=== PATIENT | male | born 1955 | race Caucasian/White ===

== ENCOUNTER → 2020-02-25 | Outpatient (CLI) | payer OTHER ==
[2016-02-22 17:23] VITALS: BP 144/81
[~2020-02-25] MED LIST: AMLO-268 PO; AMLO10TA8 PO; CLIN300C8 PO; FENO160T PO; FURO20TA3 PO; HYDR-2765 PO; HYDR-3165 PO; METF10007 PO; METO25TA4 PO; METO50TA29 PO; ONDA4TAB10 PO; TAMS0.4C2 PO; VANC1VIA3 MC
[2020-02-25 12:35] LABS: ALBUMIN 3.7 g/dL (3.4-5.0); CALCIUM 9.4 mg/dL (8.5-10.1); CREATININE 2.2 mg/dL (0.7-1.3); GFR 30.3; PHOSPHORUS 3.9 mg/dL (2.6-4.7); POTASSIUM 4.5 mmol/L (3.5-5.1)
== END | disposition home or self-care (01) ==
LOC: LAB 11:41
PROVIDERS: ATTEND Internal Medicine Nephrology
DX: I12.9 Hypertensive chronic kidney disease with stage 1 through stage 4 chronic kidney disease, or unspecified chronic kidney disease (principal); N18.3 Chronic kidney disease, stage 3 (moderate); E11.29 Type 2 diabetes mellitus with other diabetic kidney complication; E66.9 Obesity, unspecified; E55.9 Vitamin D deficiency, unspecified; R60.9 Edema, unspecified; G47.30 Sleep apnea, unspecified; Z79.84 Long term (current) use of oral hypoglycemic drugs; Z68.42 Body mass index [BMI] 45.0-49.9, adult
CPT/HCPCS: 36415; 80069

== ENCOUNTER 2020-09-24 14:17 | Inpatient (IN) | payer BC ==
[~2020-09-24] VITALS: Ht 170.2 cm; Wt 128.5 kg
[~2020-09-24 14:17] MED LIST changes: +AMLO-187 PO; -AMLO10TA8 PO; -CLIN300C8 PO; +CLIN300C9 PO
[2020-09-24] MEDS ORDERED: DEXTROSE 50% 25 GM / 50ML DISP.SYRIN. IV PRN (15:45)
[2020-09-24 15:47] VITALS: BP 137/78
[2020-09-24] MEDS ORDERED: ATOR20TA PO (16:02)
[2020-09-24] MEDS ORDERED: METO5TAB4 PO (16:02)
[2020-09-24] MEDS ORDERED: FLUO10TA PO (16:02)
[2020-09-24] MEDS ORDERED: SPIR50TA4 PO (16:02)
[2020-09-24] MEDS ORDERED: GLIP5TAB10 PO (16:02)
[2020-09-24] MEDS ORDERED: SEMA3TAB PO (16:02)
[2020-09-24] MEDS ORDERED: SEMA1PEN SQ (16:02)
[2020-09-24] MEDS ORDERED: INSU100V37 SQ (16:02)
[2020-09-24] MEDS ORDERED: POTA20TA4 PO (16:02)
[2020-09-24] MEDS ORDERED: METF500T16 PO (16:04)
--- NOTE | 2020-09-24 16:27 | NUR ---
NURSING NOTE ADMIT PT DIRECT ADMIT TO ROOM 115 FOR DX OF SYNCOPE, FALLS, AND HYPERGLYCEMIA. PT SETTLED IN ROOM. DR ARAGON NOTIFIED OF ARRIVAL. ROSETTA WHITESIDE.
[2020-09-24 16:29] LABS: BASO % 1 % (0-3); EOS # 0.4 x10^3/uL (0.0-0.7); EOS % 6 % (0-3); HEMATOCRIT 42.3 % (39.0-53.0); HEMOGLOBIN 14.8 g/dL (13.0-17.5); LYMPH # 1.5 x10^3/uL (1.0-4.8); LYMPH % 21 % (24-48); MEAN CORPUSCULAR HEMOGLOBIN 35 pg (25-35); MEAN CORPUSCULAR HGB CONC 35 g/dL (31-37); MEAN CORPUSCULAR VOLUME 99 fL (79-100); MONO # 0.7 x10^3/uL (0.0-1.1); MONO % 10 % (0-9); NEUT # 4.4 x10^3uL (1.8-7.7); NEUT % 62 % (31-73); PLATELET COUNT 203 x10^3/uL (140-400); RED BLOOD COUNT 4.26 x10^6/uL (4.30-5.70); RED CELL DISTRIBUTION WIDTH 12.7 % (11.5-14.5); WHITE BLOOD COUNT 7.1 x10^3/uL (4.0-11.0)
[2020-09-24 16:31] LABS: ALBUMIN 3.5 g/dL (3.4-5.0); ALBUMIN/GLOBULIN RATIO 0.7 (1.0-1.7); CALCIUM 9.1 mg/dL (8.5-10.1); CREATININE 1.8 mg/dL (0.7-1.3); GFR 38.2; TOTAL BILIRUBIN 0.6 mg/dL (0.2-1.0); TOTAL PROTEIN 8.2 g/dL (6.4-8.2)
[2020-09-24 16:33] LABS: POTASSIUM 2.3 mmol/L (3.5-5.1)
--- NOTE | 2020-09-24 16:38 | NUR ---
NURSING NOTE CRITICAL RESULT K 2.3 ORDER FOR ELECTROLYTE PROTOCOL RECEIVED. ROSETTA WHITESIDE.
--- NOTE | 2020-09-24 17:00 | EKG ---
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
[2020-09-24] MEDS: POTASSIUM CHLORIDE 10MEQ 100 ML IV SCH ×4 (17:06→21:14)
[2020-09-24] MEDS: IV NORMAL SALINE 1,000ML 1,000 ML IV SCH (17:06)
[2020-09-24] MEDS: methylPREDNISolone SOD SUCC PF 125 MG/2 ML VIAL. IV SCH ×2 (17:07→19:50)
[2020-09-24] MEDS: AZITHROMYCIN 250 MG TABLET. PO SCH (17:07)
--- NOTE | 2020-09-24 17:17 | RAD ---
CT THORAX WO History: Cough. Shortness of breath. Technique: Noncontrast CT of the chest was performed. Coronal and sagittal reconstructions were perfo rmed. Exposure: One or more of the following individualized dose reduction techniques were utilized for thi s examination: 1. Automated exposure control 2. Adjustment of the mA and/or kV according to patient size 3. Use of iterative reconstruction technique. Comparison: None Findings: Chest: No pathologic lymphadenopathy. Mild coronary calcifications. Bilateral gynecomastia. Left lower lobe tree-in-bud nodularity. No consolidation or pleural effusion. No pneumothorax. Mild r ight lower lobe groundglass opacities. Mild centrilobular emphysema. Upper abdomen: Hepatic steatosis. Prior cholecystectomy. Bones: Chronic left anterior rib fractures. Impression: 1. Mild left lower lobe tree-in-bud nodularity and right lower lobe groundglass opacities, may repre sent infectious or inflammatory process. 2. Bilateral gynecomastia. 3. Hepatic steatosis. Electronically signed by: Vimal Silverman DO (09/24/2020 5:14 PM) [facility]
[2020-09-24] MEDS: metFORMIN 500 MG TABLET PO SCH (17:50)
[2020-09-24] MEDS: glipiZIDE 5 MG TABLET PO SCH (17:50)
[2020-09-24] MEDS: INSULIN LISPRO 300 UNITS/3 ML VIAL. SQ SCH ×2 (17:55→19:57)
[2020-09-24] MEDS: FUROSEMIDE 20 MG TABLET PO SCH (17:56)
[2020-09-24] MEDS: ZOLPIDEM 5 MG TABLET. PO PRN (19:49)
[2020-09-24] MEDS: ACETAMINOPHEN 325 MG TABLET PO PRN (19:49)
[2020-09-24] MEDS: ATORVASTATIN CALCIUM 20 MG TABLET PO SCH (19:50)
[2020-09-24] MEDS: ENOXAPARIN 40 MG/0.4 ML SYRINGE. SQ SCH (19:51)
[2020-09-24] MEDS: METOPROLOL TART IMMED RELEASE 25 MG TABLET. PO SCH (19:52)
[2020-09-24 20:00] VITALS: BP 133/69
[2020-09-24 22:43] VITALS: BP 108/63
[2020-09-25] MEDS: methylPREDNISolone SOD SUCC PF 125 MG/2 ML VIAL. IV SCH (05:09)
[2020-09-25] MEDS: IV NORMAL SALINE 1,000ML 1,000 ML IV SCH (05:27)
[2020-09-25] MEDS: ACETAMINOPHEN 325 MG TABLET PO PRN (05:27)
[2020-09-25 05:41] VITALS: BP 124/67
[2020-09-25 05:42] VITALS: BP 147/73
[2020-09-25 05:43] VITALS: BP 116/62
[2020-09-25 06:20] LABS: CALCIUM 8.5 mg/dL (8.5-10.1); CREATININE 1.9 mg/dL (0.7-1.3); GFR 35.9
[2020-09-25 06:29] LABS: POTASSIUM 2.8 mmol/L (3.5-5.1)
[2020-09-25] MEDS: POTASSIUM CHLORIDE 10MEQ 100 ML IV SCH ×4 (07:45→10:45)
[2020-09-25] MEDS ORDERED: INSULIN LISPRO 300 UNITS/3 ML VIAL. SQ ONE ×2 (07:45→12:50)
[2020-09-25] MEDS ORDERED: INSULIN GLARGINE SYRINGE. SQ SCH (08:00)
[2020-09-25] MEDS: glipiZIDE 5 MG TABLET PO SCH ×2 (08:00→17:00)
[2020-09-25] MEDS: metFORMIN 500 MG TABLET PO SCH ×2 (08:00→17:00)
[2020-09-25] MEDS: POTASSIUM CHLORIDE 20 MEQ TABLET.ER. PO SCH (09:00)
[2020-09-25] MEDS: ENOXAPARIN 40 MG/0.4 ML SYRINGE. SQ SCH ×2 (09:00→21:53)
[2020-09-25] MEDS: FLUoxetine HCL 10 MG CAPSULE PO SCH (09:00)
[2020-09-25] MEDS: AZITHROMYCIN 250 MG TABLET. PO SCH (09:00)
[2020-09-25] MEDS: metOLazone 5 MG TABLET PO SCH (09:00)
[2020-09-25] MEDS: FENOFIBRATE NANOCRYSTALLIZED 145 MG TABLET PO SCH (09:00)
[2020-09-25] MEDS: METOPROLOL TART IMMED RELEASE 25 MG TABLET. PO SCH ×2 (09:00→21:48)
[2020-09-25] MEDS: TAMSULOSIN 0.4 MG CAP.ER.24H. PO SCH (09:00)
[2020-09-25] MEDS: FUROSEMIDE 20 MG TABLET PO SCH ×2 (09:00→15:26)
[2020-09-25] MEDS ORDERED: PHENOL ORAL SPRAY 177ML BOTTLE. PO PRN (10:15)
[2020-09-25] MEDS: INSULIN LISPRO 300 UNITS/3 ML VIAL. SQ SCH ×4 (11:19→21:55)
[2020-09-25] MEDS ORDERED: INSULIN LISPRO 300 UNITS/3 ML VIAL. SQ SCH (12:00)
[2020-09-25] MEDS ORDERED: INSULIN REGULAR 100 UNIT/ML 3ML VIAL. IV ONE ×2 (12:50→17:30)
[2020-09-25 15:00] VITALS: BP 135/78
--- NOTE | 2020-09-25 15:48 | NUR ---
NURSING NOTE [facility] DOWN TIME CRITICAL CRITICAL GLUCOSE OF [address] [facility] THIS AM. PT GIVEN 20 UNITS HUMALOG SQ PER [facility], AND 20 UNITS REGULAR INSULIN IV PER [facility]. WILL CONTINUE TO MONITOR. ROSETTA WHITESIDE.
--- NOTE | 2020-09-25 18:01 | NUR ---
NURSING NOTE PT CALLED [facility] [employer], STATES SOMETHING FELL, THIS NURSE PEAKED INTO ROOM, IT WAS THE TRASH CAN. THIS NURSE TOLD PT ITS OKAY, THAT STAFF WILL PICK IT UP NEXT TIME THEY ARE IN PT ROOM, PT IN ISOLATION D/T COVID PUI. UPON ENTERING ROOM, PT STATES "I PICKED UP TRASH CAN, IT WAS BOTHERING ME, AND I LOST MY BALANCE AND FELL OVER MY BED". THIS NURSE ASKED PT, DID YOU GET HURT OR HIT THE GROUND, PT STATES NO, HE FELL OVER THE BED. BED ALARM PLACED. PT INSTRUCTED TO CALL FOR ASSISTANCE. ROSETTA WHITESIDE.
[2020-09-25] MEDS: IPRATROPIUM/ALBUTEROL 20/100mcg/INH INHALER. INH SCH (18:49)
--- NOTE | 2020-09-25 18:57 | PN ---
DATE: 09/25/2020 SUBJECTIVE: A 64-year-old gentleman came in with extremely low potassium of only 2.3. The patient also was having trouble breathing. He also had possible __ pneumonia according to a CAT scan in the bases. The patient is receiving IV antibiotic therapy, was placed on some steroids as well as breathing problem and of course got his blood sugar up and so we have had to give him IV insulin to bring the sugar down from over 500. He at one time was on 4 liters of oxygen, BiPAP and CPAP as well as to maintain his oxygen saturation, getting breathing treatments of Combivent as well as steroids have been tapered down dramatically. OBJECTIVE: VITAL SIGNS: Blood pressure presently 135/80, respiratory rate 20, pulse 60. GENERAL: Afebrile, room air, presently 96%. HEENT: The patient's head was atraumatic, normocephalic. LUNGS: Diminished, but clear than they have been. CARDIOVASCULAR: Regular sinus rhythm, S1, S2. ABDOMEN: Soft, nontender, no rebound or guarding. Positive bowel sounds. No hepatosplenomegaly noted, protuberant. EXTREMITIES: No clubbing, cyanosis, +1 to 2 pitting edema. The patient has marked scarring to his left lower leg from previous surgeries. LABORATORY DATA: Sodium 133, potassium of 2.8, BUN and creatinine 31 and 1.9, sugar as high as 558 down to 400. We will give additional IV insulin. IMPRESSION: Pneumonia of unspecified etiology, community acquired; acute exacerbation of chronic obstructive pulmonary disease with infectious etiology, hepatic steatosis, hyperglycemia, type 2 diabetes, poorly controlled, essential hypertension, acute respiratory distress. PLAN: As above. Continue on IV antibiotic therapy and adjust medications for that insulin to get sugar down. GRIS ARAGON MD DR: HUSAM/pedro JOB#: [id number] / [id number]
[2020-09-25 19:45] VITALS: BP 142/70
[2020-09-25] MEDS ORDERED: POTASSIUM CHLORIDE 20 MEQ TABLET.ER. PO ONE (20:45)
[2020-09-25] MEDS ORDERED: methylPREDNISolone SOD SUCC PF 125 MG/2 ML VIAL. IV SCH (21:00)
[2020-09-25] MEDS: LACTOBACILLUS RHAMNOSUS GG 1 CAPSULE. PO SCH (21:47)
[2020-09-25] MEDS: ZOLPIDEM 5 MG TABLET. PO PRN (21:48)
[2020-09-25] MEDS: methylPREDNISolone SOD SUCC PF 40 MG/ML VIAL. IV SCH (21:48)
[2020-09-25] MEDS: ATORVASTATIN CALCIUM 20 MG TABLET PO SCH (21:49)
[2020-09-25] MEDS: HYDROcodone/APAP 5/325MG 1 TAB TABLET PO PRN (21:49)
[2020-09-25] MEDS: INSULIN GLARGINE SYRINGE. SQ SCH (21:54)
[2020-09-25 22:33] VITALS: BP 148/72
[2020-09-26 06:03] VITALS: BP 156/74
[2020-09-26 06:38] LABS: CALCIUM 9.2 mg/dL (8.5-10.1); CREATININE 1.7 mg/dL (0.7-1.3); GFR 40.8
[2020-09-26 07:40] LABS: POTASSIUM 2.9 mmol/L (3.5-5.1)
[2020-09-26] MEDS: IPRATROPIUM/ALBUTEROL 20/100mcg/INH INHALER. INH SCH ×4 (08:00→20:00)
[2020-09-26] MEDS: TAMSULOSIN 0.4 MG CAP.ER.24H. PO SCH (08:06)
[2020-09-26] MEDS: methylPREDNISolone SOD SUCC PF 40 MG/ML VIAL. IV SCH ×2 (08:06→22:08)
[2020-09-26] MEDS: LACTOBACILLUS RHAMNOSUS GG 1 CAPSULE. PO SCH ×2 (08:06→22:08)
[2020-09-26] MEDS: FUROSEMIDE 20 MG TABLET PO SCH (08:07)
[2020-09-26] MEDS: POTASSIUM CHLORIDE 20 MEQ TABLET.ER. PO SCH ×3 (08:07→13:45)
[2020-09-26] MEDS: FLUoxetine HCL 10 MG CAPSULE PO SCH (08:08)
[2020-09-26] MEDS: AZITHROMYCIN 250 MG TABLET. PO SCH (08:08)
[2020-09-26] MEDS: metOLazone 5 MG TABLET PO SCH (08:08)
[2020-09-26] MEDS: metFORMIN 500 MG TABLET PO SCH ×2 (08:08→16:45)
[2020-09-26] MEDS: FENOFIBRATE NANOCRYSTALLIZED 145 MG TABLET PO SCH (08:08)
[2020-09-26] MEDS: glipiZIDE 5 MG TABLET PO SCH ×2 (08:08→16:45)
[2020-09-26] MEDS: METOPROLOL TART IMMED RELEASE 25 MG TABLET. PO SCH ×2 (08:09→22:08)
[2020-09-26] MEDS: INSULIN LISPRO 300 UNITS/3 ML VIAL. SQ SCH ×5 (08:10→16:47)
[2020-09-26] MEDS: ACETAMINOPHEN 325 MG TABLET PO PRN (09:05)
[2020-09-26] MEDS: ENOXAPARIN 40 MG/0.4 ML SYRINGE. SQ SCH ×2 (09:06→22:06)
[2020-09-26] MEDS: INSULIN GLARGINE SYRINGE. SQ SCH ×2 (09:06→21:00)
[2020-09-26 10:53] VITALS: BP 148/82
[2020-09-26] MEDS ORDERED: BISACODYL 10 MG SUPP.RECT PR PRN (13:45)
[2020-09-26] MEDS: HYDROcodone/APAP 5/325MG 1 TAB TABLET PO PRN (13:53)
[2020-09-26 14:50] VITALS: BP 140/74
--- NOTE | 2020-09-26 16:03 | RAD ---
CT HEAD/BRAIN WO History: Reason: severe headache / Spl. Instructions: / History: Comparison: None. Technique: Noncontrast CT imaging was performed of the head. Exposure: One or more of the following individualized dose reduction techniques were utilized for thi s examination: 1. Automated exposure control 2. Adjustment of the mA and/or kV according to patient size 3. Use of iterative reconstruction technique. Findings: No intracranial hemorrhage. No mass effect. No hydrocephalus. Mild brain parenchymal volume loss. Mild foci of decreased attenuation within the hemispheric white m atter, most often due to chronic microvascular ischemia. Imaged orbits are unremarkable. Imaged paranasal sinuses and mastoid air cells are clear. No acute ca lvarial fracture. Impression: 1. No acute intracranial abnormality. Electronically signed by: Vimal Silverman DO (09/26/2020 4:01 PM) [facility]
--- NOTE | 2020-09-26 16:07 | PN ---
DATE: 09/26/2020 SUBJECTIVE: A 64-year-old gentleman with multiple medical issues including trouble breathing, pneumonia, imbalance, difficulty walking, ataxia or fall, elevated blood sugars and hypokalemic, working on getting additional potassium and to decrease Lasix and decrease prednisone ,waiting for COVID-19 test to come back. He is on Rocephin and azithromycin and he will continue to be monitored carefully on those. OBJECTIVE: VITAL SIGNS: Blood pressure 148/82, respiratory rate 18, pulse 57, afebrile. GENERAL: The patient is alert, although complaining of a headache in the back of his head, difficulty with gait. We will get a CT of the head there. LUNGS: Diminished, but clear than they have been, getting breathing treatments there and receiving IV antibiotic therapy. CARDIOVASCULAR: Regular sinus rhythm. Bradycardic. ABDOMEN: Protuberant, soft, diffuse tenderness; has not had a bowel movement for a few days, given a laxative there. EXTREMITIES: No clubbing, cyanosis, nor edema. NEUROLOGIC: Alert and oriented, although quite miserable in pain and is not feeling good of course with low potassium and sugars. We will just a sliding scale upwards as well as give him additional potassium supplementation. Check magnesium abdominal series, CT scan of the head and make further adjustments once those have been returned there. IMPRESSION: Pneumonia of unspecified etiology at the present time, acute exacerbation of emphysema with a respiratory infection, hepatic steatosis, constipation, severe headache, ataxia, essential hypertension, severe hypokalemia, acute respiratory distress. PLAN: As above. GRIS ARAGON MD DR: HUSAM/pedro JOB#: [id number] / [id number]
--- NOTE | 2020-09-26 16:43 | RAD ---
ACUTE ABDOMEN SERIES History: Constipation, abdominal pain. Comparison: None. Findings: Frontal chest and supine and upright views of the abdomen. Cardiomediastinal silhouette is normal. There is no pleural effusion or pneumothorax. The lungs are clear. No pneumoperitoneum is identified. Cholecystectomy clips. No dilated air-filled loops of bowel are se en. Bowel gas pattern is nonobstructive. There is probable hepatomegaly. Bones unremarkable. IMPRESSION: 1. No acute cardiopulmonary process. 2. Nonobstructive bowel gas pattern. 3. Probable hepatomegaly. Electronically signed by: Ashu Shah MD (09/26/2020 4:41 PM) [facility]
[2020-09-26 20:07] VITALS: BP 145/77
[2020-09-26] MEDS: HYDROcodone/APAP 7.5/325MG 1 TAB TABLET PO PRN (22:08)
[2020-09-26] MEDS: ZOLPIDEM 5 MG TABLET. PO PRN (22:08)
[2020-09-26] MEDS: ATORVASTATIN CALCIUM 20 MG TABLET PO SCH (22:08)
[2020-09-26] MEDS: POTASSIUM CHLORIDE 10MEQ 100 ML IV SCH ×2 (22:09→23:56)
[2020-09-26] MEDS ORDERED: INSULIN LISPRO 300 UNITS/3 ML VIAL. SQ ONE (22:15)
[2020-09-26 22:26] VITALS: BP 160/76
[2020-09-27] MEDS: POTASSIUM CHLORIDE 10MEQ 100 ML IV SCH ×4 (01:24→05:33)
[2020-09-27 05:18] VITALS: BP 163/81
[2020-09-27] MEDS: HYDROcodone/APAP 5/325MG 1 TAB TABLET PO PRN (06:17)
[2020-09-27 06:25] LABS: CALCIUM 9.1 mg/dL (8.5-10.1); CREATININE 1.5 mg/dL (0.7-1.3); GFR 47.1; POTASSIUM 3.3 mmol/L (3.5-5.1)
[2020-09-27] MEDS: metFORMIN 500 MG TABLET PO SCH ×2 (08:46→17:17)
[2020-09-27] MEDS: LACTOBACILLUS RHAMNOSUS GG 1 CAPSULE. PO SCH ×2 (08:46→20:34)
[2020-09-27] MEDS: methylPREDNISolone SOD SUCC PF 40 MG/ML VIAL. IV SCH ×2 (08:46→20:33)
[2020-09-27] MEDS: FLUoxetine HCL 10 MG CAPSULE PO SCH (08:46)
[2020-09-27] MEDS: TAMSULOSIN 0.4 MG CAP.ER.24H. PO SCH (08:46)
[2020-09-27] MEDS: DOCUSATE SODIUM 100 MG CAPSULE PO SCH (08:46)
[2020-09-27] MEDS: glipiZIDE 5 MG TABLET PO SCH ×2 (08:47→17:17)
[2020-09-27] MEDS: FENOFIBRATE NANOCRYSTALLIZED 145 MG TABLET PO SCH (08:47)
[2020-09-27] MEDS: AZITHROMYCIN 250 MG TABLET. PO SCH (08:47)
[2020-09-27] MEDS: FUROSEMIDE 20 MG TABLET PO SCH (08:47)
[2020-09-27] MEDS: METOPROLOL TART IMMED RELEASE 25 MG TABLET. PO SCH ×2 (08:48→20:33)
[2020-09-27] MEDS: ENOXAPARIN 40 MG/0.4 ML SYRINGE. SQ SCH (08:48)
[2020-09-27] MEDS: metOLazone 5 MG TABLET PO SCH (08:48)
[2020-09-27] MEDS: POTASSIUM CHLORIDE 20 MEQ TABLET.ER. PO SCH (08:48)
[2020-09-27] MEDS: INSULIN LISPRO 300 UNITS/3 ML VIAL. SQ SCH ×6 (08:51→17:19)
[2020-09-27] MEDS: INSULIN GLARGINE SYRINGE. SQ SCH ×2 (08:52→20:34)
[2020-09-27] MEDS: IPRATROPIUM/ALBUTEROL 20/100mcg/INH INHALER. INH SCH ×4 (08:54→20:00)
[2020-09-27 10:54] VITALS: BP 162/81
[2020-09-27] MEDS: NALOXEGOL OXALATE 25 MG TABLET. PO SCH (12:07)
[2020-09-27] MEDS: COLCHICINE 0.6 MG TABLET. PO SCH (12:07)
[2020-09-27 14:51] VITALS: BP 123/67
--- NOTE | 2020-09-27 19:09 | PN ---
DATE: SUBJECTIVE: The patient is a 64-year-old male in with COVID-19 pneumonia, acute respiratory failure as well as severe hypokalemia. The patient is still running low-grade temperature of 99. OBJECTIVE: VITAL SIGNS: Blood pressure 123/67, respiration 18, pulse 68, afebrile except for the 99 degree temperature low-grade. GENERAL: Otherwise, the patient is alert and oriented, feels a little bit better. LUNGS: Diminished, but basically clear. CARDIOVASCULAR: Stable. ABDOMEN: Soft, nontender. EXTREMITIES: No clubbing, cyanosis or edema. NEUROLOGIC: Intact. Blood sugars still running on the high side despite tapering down on his Solu-Medrol, otherwise. IMPRESSION: COVID-19 pneumonia, severe hypokalemia, severe hyperglycemia. PLAN: Continue with present protocol and continue to monitor patient accordingly. GRIS ARAGON MD DR: HUSAM/pedro JOB#: [id number] / [id number]
[2020-09-27 19:38] VITALS: BP 171/77
[2020-09-27] MEDS: ENOXAPARIN ** NOTE DOSE ** SYRINGE SQ SCH (20:32)
[2020-09-27] MEDS: ACETAMINOPHEN 325 MG TABLET PO PRN (20:34)
[2020-09-27] MEDS: ATORVASTATIN CALCIUM 20 MG TABLET PO SCH (20:34)
[2020-09-27 23:11] VITALS: BP 151/75
[2020-09-28 05:36] VITALS: BP 148/52
[2020-09-28 06:05] LABS: HEMATOCRIT 40.3 % (39.0-53.0); HEMOGLOBIN 13.7 g/dL (13.0-17.5); RED BLOOD COUNT 4.05 x10^6/uL (4.30-5.70); RED CELL DISTRIBUTION WIDTH 12.8 % (11.5-14.5); WHITE BLOOD COUNT 14.4 x10^3/uL (4.0-11.0)
[2020-09-28] MEDS: NALOXEGOL OXALATE 25 MG TABLET. PO SCH (07:27)
[2020-09-28] MEDS: IPRATROPIUM/ALBUTEROL 20/100mcg/INH INHALER. INH SCH ×4 (08:00→20:00)
[2020-09-28] MEDS: ENOXAPARIN ** NOTE DOSE ** SYRINGE SQ SCH ×2 (08:49→20:35)
[2020-09-28] MEDS: FUROSEMIDE 20 MG TABLET PO SCH (08:50)
[2020-09-28] MEDS: metOLazone 5 MG TABLET PO SCH (08:50)
[2020-09-28] MEDS: LACTOBACILLUS RHAMNOSUS GG 1 CAPSULE. PO SCH ×2 (08:51→20:37)
[2020-09-28] MEDS: AZITHROMYCIN 250 MG TABLET. PO SCH (08:51)
[2020-09-28] MEDS: glipiZIDE 5 MG TABLET PO SCH ×2 (08:51→17:20)
[2020-09-28] MEDS: POTASSIUM CHLORIDE 20 MEQ TABLET.ER. PO SCH (08:51)
[2020-09-28] MEDS: TAMSULOSIN 0.4 MG CAP.ER.24H. PO SCH (08:51)
[2020-09-28] MEDS: FLUoxetine HCL 10 MG CAPSULE PO SCH (08:51)
[2020-09-28] MEDS: metFORMIN 500 MG TABLET PO SCH ×2 (08:51→17:20)
[2020-09-28] MEDS: COLCHICINE 0.6 MG TABLET. PO SCH (08:51)
[2020-09-28] MEDS: METOPROLOL TART IMMED RELEASE 25 MG TABLET. PO SCH ×2 (08:52→20:36)
[2020-09-28] MEDS: FENOFIBRATE NANOCRYSTALLIZED 145 MG TABLET PO SCH (08:52)
[2020-09-28] MEDS: DOCUSATE SODIUM 100 MG CAPSULE PO SCH (08:52)
[2020-09-28] MEDS: INSULIN LISPRO 300 UNITS/3 ML VIAL. SQ SCH ×6 (08:59→17:23)
[2020-09-28] MEDS: INSULIN GLARGINE SYRINGE. SQ SCH ×2 (09:00→20:39)
[2020-09-28] MEDS: methylPREDNISolone SOD SUCC PF 40 MG/ML VIAL. IV SCH ×2 (09:03→20:37)
[2020-09-28] MEDS: HYDROcodone/APAP 5/325MG 1 TAB TABLET PO PRN ×2 (09:07→20:36)
[2020-09-28 10:26] VITALS: BP 157/66
[2020-09-28] MEDS: ACETAMINOPHEN 325 MG TABLET PO PRN (12:10)
[2020-09-28] MEDS ORDERED: guaiFENesin DM 200MG/20MG 10 ML SYRUP PO ONE (13:15)
[2020-09-28] MEDS: POLYETHYLENE GLYCOL 3350 17 GM PACKET. PO SCH (13:49)
[2020-09-28 14:33] VITALS: BP 138/74
--- NOTE | 2020-09-28 20:26 | PN ---
DATE: SUBJECTIVE: A 64-year-old male in with COVID-19 pneumonia. The patient says he is feeling a smidgen better. His temperature is staying down about 99 degrees. His oxygen saturation above 90 consistently, blood pressure 138/74, respiratory rate 20, pulse 99. The patient otherwise continued to be monitored carefully, make further evaluation on him as indicated. Lungs were diminished, some crackles in the bases, but improved throughout. He looks a little bit stronger than he has been. He is getting his sugar down consistently more in the 200s and even 100s than the 300s. The patient's potassium is finally up over 3 and continue to monitor him on that. IMPRESSION: Bilateral COVID-19 pneumonia, severe hypokalemia, hyperglycemia, type 2 diabetes, morbid obesity. PLAN: Continue with protocol as indicated as he is making a stellar progress with that. GRIS ARAGON MD DR: HUSAM/pedro JOB#: [id number] / [id number]
[2020-09-28] MEDS: ATORVASTATIN CALCIUM 20 MG TABLET PO SCH (20:37)
[2020-09-28 20:54] VITALS: BP 146/82
[2020-09-28 23:29] VITALS: BP 142/73
--- NOTE | 2020-09-29 02:53 | NUR ---
Nursing note: Pt A&Ox4, blood sugar elevated, lantus 35u given per orders. Pt did c/o headache, hydrocodone/APAP given per orders. Spoke with pt regarding suppository vs. PO medication to move bowels; pt elected not to have suppository at this time. VS as noted.
[2020-09-29 05:54] VITALS: BP 157/79
[2020-09-29] MEDS: NALOXEGOL OXALATE 25 MG TABLET. PO SCH (06:09)
[2020-09-29 06:26] LABS: CALCIUM 9.3 mg/dL (8.5-10.1); CREATININE 1.5 mg/dL (0.7-1.3); GFR 47.1
[2020-09-29 06:28] LABS: POTASSIUM 2.9 mmol/L (3.5-5.1)
[2020-09-29] MEDS: POTASSIUM CHLORIDE 10MEQ 100 ML IV SCH ×4 (07:00→09:45)
[2020-09-29] MEDS: IPRATROPIUM/ALBUTEROL 20/100mcg/INH INHALER. INH SCH ×4 (08:00→20:00)
[2020-09-29] MEDS: glipiZIDE 5 MG TABLET PO SCH ×2 (08:08→16:56)
[2020-09-29] MEDS: FUROSEMIDE 20 MG TABLET PO SCH (08:08)
[2020-09-29] MEDS: COLCHICINE 0.6 MG TABLET. PO SCH (08:09)
[2020-09-29] MEDS: metFORMIN 500 MG TABLET PO SCH ×2 (08:09→16:56)
[2020-09-29] MEDS: FLUoxetine HCL 10 MG CAPSULE PO SCH (08:09)
[2020-09-29] MEDS: AZITHROMYCIN 250 MG TABLET. PO SCH (08:09)
[2020-09-29] MEDS: TAMSULOSIN 0.4 MG CAP.ER.24H. PO SCH (08:09)
[2020-09-29] MEDS: DOCUSATE SODIUM 100 MG CAPSULE PO SCH (08:09)
[2020-09-29] MEDS: FENOFIBRATE NANOCRYSTALLIZED 145 MG TABLET PO SCH (08:09)
[2020-09-29] MEDS: POTASSIUM CHLORIDE 20 MEQ TABLET.ER. PO SCH (08:09)
[2020-09-29] MEDS: METOPROLOL TART IMMED RELEASE 25 MG TABLET. PO SCH ×2 (08:09→20:31)
[2020-09-29] MEDS: metOLazone 5 MG TABLET PO SCH (08:09)
[2020-09-29] MEDS: methylPREDNISolone SOD SUCC PF 40 MG/ML VIAL. IV SCH (08:10)
[2020-09-29] MEDS: POLYETHYLENE GLYCOL 3350 17 GM PACKET. PO SCH (08:10)
[2020-09-29] MEDS: LACTOBACILLUS RHAMNOSUS GG 1 CAPSULE. PO SCH ×2 (08:10→20:30)
[2020-09-29] MEDS: ENOXAPARIN ** NOTE DOSE ** SYRINGE SQ SCH ×2 (08:10→20:31)
[2020-09-29] MEDS: INSULIN LISPRO 300 UNITS/3 ML VIAL. SQ SCH ×6 (08:14→17:00)
[2020-09-29] MEDS: INSULIN GLARGINE SYRINGE. SQ SCH ×2 (08:19→20:34)
[2020-09-29] MEDS: HYDROcodone/APAP 7.5/325MG 1 TAB TABLET PO PRN ×2 (08:47→21:38)
[2020-09-29] MEDS: guaiFENesin DM 200MG/20MG 10 ML SYRUP PO PRN ×2 (08:48→20:30)
[2020-09-29 11:00] VITALS: BP 131/68
[2020-09-29] MEDS ORDERED: IPRATRPIUM/ALBUTEROL 0.5/2.5MG 3 ML NEBU. INH SCH (12:00)
[2020-09-29] MEDS ORDERED: FLUoxetine HCL 10 MG CAPSULE PO ONE (12:00)
[2020-09-29] MEDS ORDERED: MAGNESIUM CITRATE 296 ML SOLUTION. PO ONE (12:00)
[2020-09-29] MEDS: DEXAMETHASONE SOD PHOS 4 MG/ML VIAL. IVP SCH ×2 (14:00→20:30)
[2020-09-29 14:13] LABS: GFR 43.7; POTASSIUM 3.3 mmol/L (3.5-5.1)
[2020-09-29 14:25] LABS: CALCIUM 9.6 mg/dL (8.5-10.1); CREATININE 1.6 mg/dL (0.7-1.3)
[2020-09-29 14:53] VITALS: BP 138/69
--- NOTE | 2020-09-29 15:10 | RAD ---
XR CHEST 1V Clinical History: Reason: soa, covid + / Spl. Instructions: / History: Technique: AP view of the chest was obtained at 09/29/2020 1:35 PM. Comparison: February 15, 2016. Findings: The cardiomediastinal silhouette is normal. The pulmonary vasculature is normal. There is mild patchy opacity in the lung bases. Impression: Mild basal infiltrates likely discoid atelectasis. Electronically signed by: Manuelito Boyd III, MD (09/29/2020 3:07 PM) [facility]
[2020-09-29] MEDS ORDERED: POTASSIUM CHLORIDE 20 MEQ TABLET.ER. PO ONE (17:00)
--- NOTE | 2020-09-29 18:16 | NUR ---
Pt up adl in room. Had Cody in am relieved with Lortab. Also having dry cough relieved somewhat with cough syrup.C/O severe fatigue, chest tightness and weakness. SOA with exertion. Temp at lunch 100.3. Dr Delaney here to see pt. New orders noted. Pt on K+ protocol. Pt up to 3.3. 40meq given at supper and BMP ordered for am. Pt also c/o no BM x 1 week. Mag citrate given with good results. Resting quietly in bed at this time.
[2020-09-29] MEDS: BUTALB/APAP/CAFEIN 50/325/40MG TABLET. PO PRN (19:32)
[2020-09-29 19:57] VITALS: BP 160/69
[2020-09-29] MEDS: ATORVASTATIN CALCIUM 20 MG TABLET PO SCH (20:30)
[2020-09-29] MEDS: ZOLPIDEM 5 MG TABLET. PO PRN (20:30)
--- NOTE | 2020-09-29 22:28 | PN ---
DATE: 09/29/2020 SUBJECTIVE: A 64-year-old male in with bilateral COVID-19 pneumonia. The patient is making some progress, but still very ill. Temperature spiked up to 100.2. OBJECTIVE: VITAL SIGNS: Blood pressure 160/70, respiratory rate 20, pulse 70, and oxygen saturation 93%. GENERAL: The patient continues on IV antibiotic therapy. Added Levaquin to his drug regimen. LUNGS: Diminished, but basically clear. CARDIOVASCULAR: Stable. ABDOMEN: Soft, nontender, protuberant. EXTREMITIES: No clubbing, cyanosis, nor edema. LABORATORY DATA: Potassium still on the low side 3.3. PLAN: We will go ahead and continue to adjust his insulin. We will keep that under control. Continue with antibiotic therapy. Continue to monitor him carefully. IMPRESSION: COVID-19 pneumonia, type 2 diabetes, hypokalemia and hyponatremia. GRIS ARAGON MD DR: HUSAM/pedro JOB#: [id number] / [id number]
[2020-09-29 23:05] VITALS: BP 148/75
--- NOTE | 2020-09-30 02:10 | NUR ---
Nursing note: Pt c/o headache at beginning of shift, tried fioricet per request; some relief as noted but headache returned in severity. Pain medications, ambien, and cough medications given per orders and pt req.
[2020-09-30] MEDS: NALOXEGOL OXALATE 25 MG TABLET. PO SCH (06:15)
[2020-09-30 07:16] VITALS: BP 143/88
[2020-09-30] MEDS: DEXAMETHASONE SOD PHOS 4 MG/ML VIAL. IVP SCH ×3 (07:20→20:57)
[2020-09-30 07:52] LABS: CALCIUM 9.2 mg/dL (8.5-10.1); CREATININE 1.4 mg/dL (0.7-1.3)
[2020-09-30 07:56] LABS: POTASSIUM 3.6 mmol/L (3.5-5.1)
[2020-09-30] MEDS: IPRATROPIUM/ALBUTEROL 20/100mcg/INH INHALER. INH SCH ×4 (08:00→20:00)
[2020-09-30] MEDS: ENOXAPARIN ** NOTE DOSE ** SYRINGE SQ SCH ×2 (08:22→20:57)
[2020-09-30] MEDS: metFORMIN 500 MG TABLET PO SCH ×2 (08:23→17:00)
[2020-09-30] MEDS: COLCHICINE 0.6 MG TABLET. PO SCH (08:23)
[2020-09-30] MEDS: FENOFIBRATE NANOCRYSTALLIZED 145 MG TABLET PO SCH (08:23)
[2020-09-30] MEDS: FLUoxetine HCL 20 MG CAPSULE PO SCH (08:23)
[2020-09-30] MEDS: AZITHROMYCIN 250 MG TABLET. PO SCH (08:23)
[2020-09-30] MEDS: LACTOBACILLUS RHAMNOSUS GG 1 CAPSULE. PO SCH ×2 (08:23→20:57)
[2020-09-30] MEDS: glipiZIDE 5 MG TABLET PO SCH ×2 (08:23→17:00)
[2020-09-30] MEDS: DOCUSATE SODIUM 100 MG CAPSULE PO SCH (08:23)
[2020-09-30] MEDS: POLYETHYLENE GLYCOL 3350 17 GM PACKET. PO SCH ×2 (08:24→08:59)
[2020-09-30] MEDS: METOPROLOL TART IMMED RELEASE 25 MG TABLET. PO SCH ×2 (08:24→20:56)
[2020-09-30] MEDS: TAMSULOSIN 0.4 MG CAP.ER.24H. PO SCH (08:24)
[2020-09-30] MEDS: POTASSIUM CHLORIDE 20 MEQ TABLET.ER. PO SCH (08:24)
[2020-09-30] MEDS: INSULIN LISPRO 300 UNITS/3 ML VIAL. SQ SCH ×6 (08:25→17:02)
[2020-09-30] MEDS: BUTALB/APAP/CAFEIN 50/325/40MG TABLET. PO PRN (08:47)
[2020-09-30] MEDS: guaiFENesin DM 200MG/20MG 10 ML SYRUP PO PRN (08:48)
[2020-09-30] MEDS: INSULIN GLARGINE SYRINGE. SQ SCH ×2 (08:48→20:56)
[2020-09-30 11:06] VITALS: BP 147/93
[2020-09-30] MEDS: ACETAMINOPHEN 325 MG TABLET PO PRN (11:18)
--- NOTE | 2020-09-30 14:30 | NUR ---
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
--- NOTE | 2020-09-30 14:31 | NUR ---
Procedure: Following complete explanation of the PICC procedure including the indications, risks, and potential complications, informed consent was obtained. The possibility for infection was discussed along with signs, symptoms, and prevention. All the patient's questions were answered. IV Device Protocol was used. Written and verbal patient education was provided. Hand hygiene performed. Standardized central line checklist was utilized. The patient was placed in the supine position, the right arm was prepped with chlorhexidine and patient draped with maximum sterile barrier. 1.5 mL 1% lidocaine was infiltrated into the skin to provide local anesthesia. A thorough assessment of the right upper extremity completed. Using real-time ultrasound guidance and standardized micro puncture set, the Basilic vein was punctured and a peel away sheath was placed using the modified Seldinger technique. A tip location device was used to ensure adequate catheter placement. The catheter was secured using a securement device and an antimicrobial patch was applied directly on the insertion site followed by a transparent dressing. The port withdrew blood and flushed without resistance. Patient tolerated the procedure without apparent complication. A single Lumen Power PICC placement successful and uncomplicated. Placement verified by EKG tip confirmation system green p wave and massiel observed. Tip located in the ACJ per 3CG. Complications:
[2020-09-30 15:25] VITALS: BP 162/84
[2020-09-30 19:30] VITALS: BP 147/77
[2020-09-30] MEDS: HYDROcodone/APAP 7.5/325MG 1 TAB TABLET PO PRN (20:57)
[2020-09-30] MEDS: ATORVASTATIN CALCIUM 20 MG TABLET PO SCH (20:57)
[2020-09-30] MEDS: ZOLPIDEM 5 MG TABLET. PO PRN (22:25)
[2020-09-30 23:00] VITALS: BP 157/84
--- NOTE | 2020-10-01 04:08 | PN ---
DATE: 09/30/2020 SUBJECTIVE: A 64-year-old male with bilateral lobe COVID-19 pneumonia. The patient is resting fairly comfortably, making fairly good progress. He says he feels smidgen better. His temperature is still up to the 100.1. OBJECTIVE: VITAL SIGNS: Blood pressure 140/77, respiratory rate 18, pulse 60, 97% oxygen saturation, which is improving. GENERAL: The patient otherwise seems to be more alert, but he has been a little bit stronger. LUNGS: Diminished throughout, basically clear, but decreased. CARDIOVASCULAR: Regular sinus rhythm. ABDOMEN: Soft, protuberant, nontender. EXTREMITIES: No clubbing, cyanosis or edema. NEUROLOGIC: Baseline there. LABORATORY DATA: Blood sugars are still running on the high side, so we will continue to adjust his insulin and make further adjustments as indicated. IMPRESSION AND PLAN: Bilateral lobe COVID-19 pneumonia, hyperglycemia, type 2 diabetes, hypokalemia, which seems to be improving and we will make him feel ____. We will increase his insulin as we attempt to get his sugars down and control his COVID infection. GRIS ARAGON MD DR: HUSAM/pedro JOB#: [id number] / [id number]
--- NOTE | 2020-10-01 05:09 | NUR ---
Pt requested pain med and something to help him sleep. Pt received lortab and ambien. Pt is complaining of pain in his right arm around site of PICC that was just placed 11/29/19. Sight has no drainage no redness. This RN explained the sight would be sore for a couple of day due to procedure. No other concerns or complaints through the night. Pt has slept the rest of the night.
[2020-10-01] MEDS: DEXAMETHASONE SOD PHOS 4 MG/ML VIAL. IVP SCH ×2 (05:26→20:12)
[2020-10-01 05:48] VITALS: BP 156/79
[2020-10-01 06:07] LABS: CALCIUM 9.2 mg/dL (8.5-10.1); CREATININE 1.5 mg/dL (0.7-1.3); GFR 47.1; POTASSIUM 3.4 mmol/L (3.5-5.1)
[2020-10-01] MEDS: NALOXEGOL OXALATE 25 MG TABLET. PO SCH (06:24)
[2020-10-01] MEDS: INSULIN LISPRO 300 UNITS/3 ML VIAL. SQ SCH ×6 (08:27→16:56)
[2020-10-01] MEDS: INSULIN GLARGINE SYRINGE. SQ SCH ×2 (08:27→20:12)
[2020-10-01] MEDS: FENOFIBRATE NANOCRYSTALLIZED 145 MG TABLET PO SCH (08:29)
[2020-10-01] MEDS: FLUoxetine HCL 20 MG CAPSULE PO SCH (08:30)
[2020-10-01] MEDS: DOCUSATE SODIUM 100 MG CAPSULE PO SCH (08:30)
[2020-10-01] MEDS: glipiZIDE 5 MG TABLET PO SCH ×2 (08:30→16:56)
[2020-10-01] MEDS: LACTOBACILLUS RHAMNOSUS GG 1 CAPSULE. PO SCH ×2 (08:30→20:11)
[2020-10-01] MEDS: COLCHICINE 0.6 MG TABLET. PO SCH (08:30)
[2020-10-01] MEDS: guaiFENesin DM 200MG/20MG 10 ML SYRUP PO PRN ×2 (08:30→17:00)
[2020-10-01] MEDS: FUROSEMIDE 20 MG TABLET PO SCH (08:30)
[2020-10-01] MEDS: AZITHROMYCIN 250 MG TABLET. PO SCH (08:30)
[2020-10-01] MEDS: TAMSULOSIN 0.4 MG CAP.ER.24H. PO SCH (08:30)
[2020-10-01] MEDS: METOPROLOL TART IMMED RELEASE 25 MG TABLET. PO SCH ×2 (08:30→20:12)
[2020-10-01] MEDS: IPRATROPIUM/ALBUTEROL 20/100mcg/INH INHALER. INH SCH ×4 (08:31→20:11)
[2020-10-01] MEDS: metFORMIN 500 MG TABLET PO SCH ×2 (08:31→16:56)
[2020-10-01] MEDS: POTASSIUM CHLORIDE 20 MEQ TABLET.ER. PO SCH (08:32)
[2020-10-01] MEDS: POLYETHYLENE GLYCOL 3350 17 GM PACKET. PO SCH (08:32)
[2020-10-01] MEDS: ENOXAPARIN ** NOTE DOSE ** SYRINGE SQ SCH ×2 (08:32→20:11)
[2020-10-01 10:25] VITALS: BP 169/89
[2020-10-01] MEDS: ACETAMINOPHEN 325 MG TABLET PO PRN (15:21)
[2020-10-01 15:35] VITALS: BP 133/65
[2020-10-01] MEDS: HYDROcodone/APAP 7.5/325MG 1 TAB TABLET PO PRN (17:01)
--- NOTE | 2020-10-01 19:18 | PN ---
DATE: SUBJECTIVE: A 64-year-old gentleman with COVID-19 pneumonia. The patient had been doing reasonably well, although this afternoon spiked temperature up to 102.1, pulse 70, respiratory rate 20, and blood pressure 130/60. Good oxygen saturation 94%, but still spiking temperatures. He is on triple antibiotic therapy. We will repeat chest x-ray. Otherwise, his blood sugar dropped down to 58 from where it has been running in the 300s or 400s. Otherwise, the patient continues to be monitored carefully and we will adjust his insulin and make further evaluation on him as indicated per those results. OBJECTIVE: GENERAL: The patient is alert and oriented, still very weak. LUNGS: Diminished, but clear. CARDIOVASCULAR: Regular sinus rhythm. ABDOMEN: Soft, nontender, protuberant. EXTREMITIES: No clubbing, cyanosis, nor edema. IMPRESSION: Therefore of COVID-19 pneumonia, type 2 diabetes, hypoglycemia, hyperglycemia, hypokalemia. PLAN: Continue to monitor and make further evaluation on him as indicated. GRIS ARAGON MD DR: HUSAM/pedro JOB#: [id number] / [id number]
[2020-10-01 19:30] VITALS: BP 139/77
[2020-10-01] MEDS: BUTALB/APAP/CAFEIN 50/325/40MG TABLET. PO PRN (20:11)
[2020-10-01] MEDS: ZOLPIDEM 5 MG TABLET. PO PRN (20:11)
[2020-10-01] MEDS: ATORVASTATIN CALCIUM 20 MG TABLET PO SCH (20:11)
[2020-10-01] MEDS ORDERED: INSULIN GLARGINE SYRINGE. SQ SCH (21:00)
--- NOTE | 2020-10-01 21:34 | RAD ---
AP chest x-ray HISTORY: Fever and shortness of breath. COMPARISON: Chest x-ray September 29, 2019. FINDINGS: Right PICC line tip distal SVC near the prior study. Heart size normal. Sella silhouette is normal. No pneumothorax. No pleural effusions. There is a right perihilar and infrahilar infiltrate which is new. Left lung clear. IMPRESSION: PICC line placement as described above. Development of right perihilar and infrahilar inf iltrates silhouetting the minor fissure suggesting right upper lobe and middle lobe infiltrates possi maynor multilobar pneumonia. Follow-up is advised to document that these resolve after treatment. Electronically signed by: Jagjit Dodge MD (10/01/2020 9:32 PM) [facility]
[2020-10-01 22:37] VITALS: BP 148/76
[2020-10-02 05:23] LABS: CALCIUM 8.7 mg/dL (8.5-10.1); CREATININE 1.5 mg/dL (0.7-1.3); GFR 47.1; POTASSIUM 3.4 mmol/L (3.5-5.1)
[2020-10-02 05:32] VITALS: BP 154/72
[2020-10-02] MEDS: IPRATROPIUM/ALBUTEROL 20/100mcg/INH INHALER. INH SCH ×4 (08:00→21:35)
[2020-10-02] MEDS: ENOXAPARIN ** NOTE DOSE ** SYRINGE SQ SCH ×2 (08:01→21:34)
[2020-10-02] MEDS: DEXAMETHASONE SOD PHOS 4 MG/ML VIAL. IVP SCH ×2 (08:01→21:34)
[2020-10-02] MEDS: NALOXEGOL OXALATE 25 MG TABLET. PO SCH (08:01)
[2020-10-02] MEDS: FENOFIBRATE NANOCRYSTALLIZED 145 MG TABLET PO SCH (08:02)
[2020-10-02] MEDS: LACTOBACILLUS RHAMNOSUS GG 1 CAPSULE. PO SCH ×2 (08:02→21:34)
[2020-10-02] MEDS: TAMSULOSIN 0.4 MG CAP.ER.24H. PO SCH (08:02)
[2020-10-02] MEDS: DOCUSATE SODIUM 100 MG CAPSULE PO SCH (08:02)
[2020-10-02] MEDS: glipiZIDE 5 MG TABLET PO SCH ×2 (08:02→16:52)
[2020-10-02] MEDS: FLUoxetine HCL 20 MG CAPSULE PO SCH (08:02)
[2020-10-02] MEDS: METOPROLOL TART IMMED RELEASE 25 MG TABLET. PO SCH ×2 (08:03→21:35)
[2020-10-02] MEDS: POTASSIUM CHLORIDE 20 MEQ TABLET.ER. PO SCH (08:03)
[2020-10-02] MEDS: AZITHROMYCIN 250 MG TABLET. PO SCH (08:03)
[2020-10-02] MEDS: COLCHICINE 0.6 MG TABLET. PO SCH (08:04)
[2020-10-02] MEDS: metFORMIN 500 MG TABLET PO SCH ×2 (08:04→16:52)
[2020-10-02] MEDS: INSULIN LISPRO 300 UNITS/3 ML VIAL. SQ SCH ×6 (08:07→16:54)
[2020-10-02] MEDS: INSULIN GLARGINE SYRINGE. SQ SCH ×2 (08:09→21:33)
[2020-10-02] MEDS: POLYETHYLENE GLYCOL 3350 17 GM PACKET. PO SCH (08:11)
[2020-10-02] MEDS ORDERED: PIP/TAZO PER PHARMACY MC PRN (09:30)
[2020-10-02 10:43] VITALS: BP 142/57
[2020-10-02] MEDS: ACETAMINOPHEN 325 MG TABLET PO PRN ×2 (11:42→21:34)
[2020-10-02] MEDS: PIPERACILLIN/TAZOBACTAM 4.5 GM in IV NORMAL SALINE 50ML 50 ML IV SCH ×2 (14:39→21:34)
[2020-10-02 14:42] VITALS: BP 144/66
--- NOTE | 2020-10-02 18:10 | DS ---
DATE OF DISCHARGE: HOSPITAL COURSE: A 64-year-old male in with COVID-19 pneumonia, had been doing reasonably well and then became increasingly feverish and his chest x-ray showed bilateral pneumonia, fairly significantly. His blood pressure has stabilized at 140/66, respiratory rate 20, and pulse 60. His temperature has dropped down from 102.1 down to 100 degrees, down to afebrile. The patient is alert, but very lethargic, needs to get up more. The patient's lungs are diminished primarily in the bases, but clearer than they have been in the last day or so. Cardiovascular exam was regular sinus rhythm, S1, S2, without murmur, rub, thrill, or extra heart sounds. The patient's abdomen is soft, protuberant, and nontender. The patient otherwise seems to be making good progress with the change in antibiotics, as he is on Zosyn and Levaquin. Blood sugars were also being monitored as he has had severe problems with those. Potassium is still slightly low at 3.4. Blood sugars in the mid 200s. Sodium is low at 128. Continue to monitor all those. Otherwise extremities, no clubbing, cyanosis. Trace edema. IMPRESSION: Sepsis, COVID-19 pneumonia, bilateral lobe pneumonia, type 2 diabetes, poorly controlled; hypokalemia, morbid obesity, acute exacerbation of chronic obstructive pulmonary disease with respiratory infection, hepatic steatosis, constipation, severe headache, ataxia, essential hypertension, and hypokalemia as noted. GRIS ARAGON MD DR: HUSAM/pedro JOB#: [id number] / [id number]
[2020-10-02 20:00] VITALS: BP 144/77
[2020-10-02] MEDS: ATORVASTATIN CALCIUM 20 MG TABLET PO SCH (21:34)
[2020-10-02] MEDS: ZOLPIDEM 5 MG TABLET. PO PRN (21:34)
[2020-10-03 01:09] VITALS: BP 139/75
[2020-10-03] MEDS: PIPERACILLIN/TAZOBACTAM 4.5 GM in IV NORMAL SALINE 50ML 50 ML IV SCH ×3 (06:15→20:45)
[2020-10-03 06:27] VITALS: BP 148/85
[2020-10-03] MEDS: NALOXEGOL OXALATE 25 MG TABLET. PO SCH (08:34)
[2020-10-03] MEDS: metFORMIN 500 MG TABLET PO SCH ×2 (08:34→17:11)
[2020-10-03] MEDS: glipiZIDE 5 MG TABLET PO SCH ×2 (08:35→17:11)
[2020-10-03] MEDS: FENOFIBRATE NANOCRYSTALLIZED 145 MG TABLET PO SCH (08:35)
[2020-10-03] MEDS: COLCHICINE 0.6 MG TABLET. PO SCH (08:35)
[2020-10-03] MEDS: LACTOBACILLUS RHAMNOSUS GG 1 CAPSULE. PO SCH ×2 (08:35→20:45)
[2020-10-03] MEDS: METOPROLOL TART IMMED RELEASE 25 MG TABLET. PO SCH ×2 (08:35→20:46)
[2020-10-03] MEDS: POTASSIUM CHLORIDE 20 MEQ TABLET.ER. PO SCH (08:35)
[2020-10-03] MEDS: TAMSULOSIN 0.4 MG CAP.ER.24H. PO SCH (08:35)
[2020-10-03] MEDS: FUROSEMIDE 20 MG TABLET PO SCH (08:35)
[2020-10-03] MEDS: IPRATROPIUM/ALBUTEROL 20/100mcg/INH INHALER. INH SCH ×4 (08:36→20:00)
[2020-10-03] MEDS: DOCUSATE SODIUM 100 MG CAPSULE PO SCH (08:36)
[2020-10-03] MEDS: FLUoxetine HCL 20 MG CAPSULE PO SCH (08:36)
[2020-10-03] MEDS: DEXAMETHASONE SOD PHOS 4 MG/ML VIAL. IVP SCH ×2 (08:36→20:46)
[2020-10-03] MEDS: ENOXAPARIN ** NOTE DOSE ** SYRINGE SQ SCH ×2 (08:37→20:45)
[2020-10-03] MEDS: POLYETHYLENE GLYCOL 3350 17 GM PACKET. PO SCH (08:38)
[2020-10-03] MEDS: INSULIN LISPRO 300 UNITS/3 ML VIAL. SQ SCH ×6 (08:41→17:15)
[2020-10-03] MEDS: INSULIN GLARGINE SYRINGE. SQ SCH ×2 (08:43→20:47)
[2020-10-03] MEDS: guaiFENesin DM 200MG/20MG 10 ML SYRUP PO PRN (09:03)
[2020-10-03] MEDS: ACETAMINOPHEN 325 MG TABLET PO PRN (09:03)
[2020-10-03 09:56] LABS: BASO % 0 % (0-3); EOS # 0.1 x10^3/uL (0.0-0.7); EOS % 1 % (0-3); HEMOGLOBIN 13.8 g/dL (13.0-17.5); LYMPH # 1.4 x10^3/uL (1.0-4.8); LYMPH % 10 % (24-48); MEAN CORPUSCULAR HEMOGLOBIN 36 pg (25-35); MEAN CORPUSCULAR HGB CONC 35 g/dL (31-37); MEAN CORPUSCULAR VOLUME 103 fL (79-100); MONO % 7 % (0-9); NEUT # 11.7 x10^3uL (1.8-7.7); NEUT % 82 % (31-73); PLATELET COUNT 281 x10^3/uL (140-400); RED BLOOD COUNT 3.87 x10^6/uL (4.30-5.70); RED CELL DISTRIBUTION WIDTH 12.8 % (11.5-14.5); WHITE BLOOD COUNT 14.3 x10^3/uL (4.0-11.0)
[2020-10-03 10:05] LABS: CALCIUM 9.1 mg/dL (8.5-10.1); CREATININE 1.6 mg/dL (0.7-1.3); GFR 43.7; POTASSIUM 3.6 mmol/L (3.5-5.1)
[2020-10-03 11:26] VITALS: BP 147/69
--- NOTE | 2020-10-03 16:21 | NUR ---
NSG NOTE; HYPOXIA PT WALKED IN THE [place] WITH PT/OT AND HAD O2 SAT OF 86% AFTER 10 MINUTE RECOVERY TIME IN ROOM. O2 NC APPLIED AND TITRATED UP TO 5 L TO GET O2 SAT OF 91%
[2020-10-03 17:10] VITALS: BP 144/68
[2020-10-03] MEDS ORDERED: REMDESIVIR LOAD in IV NORMAL SALINE 250ML TV IV ONE (20:00)
[2020-10-03] MEDS: ATORVASTATIN CALCIUM 20 MG TABLET PO SCH (20:45)
[2020-10-03] MEDS: HYDROcodone/APAP 7.5/325MG 1 TAB TABLET PO PRN (20:45)
[2020-10-03] MEDS: ZOLPIDEM 5 MG TABLET. PO PRN (20:45)
[2020-10-03 20:48] VITALS: BP 146/59
--- NOTE | 2020-10-03 21:25 | PN ---
DATE: 10/03/2020 SUBJECTIVE: A 64-year-old male in with COVID-19 pneumonia, acute respiratory failure with hypoxia, seems to be doing a little bit stronger today. He needs to get out of bed more and we will tell him numerous times. Blood pressure 140/70, respirations 18, pulse 60, afebrile. He has no general complaints outside of just being weak and fatigued and that is the main thing of getting his endurance and stamina. PT, OT is working with him. The patient otherwise seems to be resting fairly comfortably. OBJECTIVE: VITAL SIGNS: As noted blood pressure 140/70, respiratory rate 18, pulse 60, afebrile. He is on ___ at 96%. GENERAL: Otherwise, he is alert and oriented, looks a little bit stronger than he was yesterday. LUNGS: Diminished, primarily in the bases, but clear. CARDIOVASCULAR: Stable. ABDOMEN: Soft, protuberant. EXTREMITIES: No clubbing, cyanosis. Continue to monitor him on that. LABORATORY DATA: Continue to show improvement of his potassium to 3.6. Sodium is 133. Blood sugars in the mid 200s, markedly improved. IMPRESSION: COVID-19 pneumonia, acute respiratory distress with hypoxia, hypokalemia, hyponatremia, type 2 diabetes. PLAN: Continue with protocol with IV antibiotic therapy. Have him continue with PT, OT. Encouraged him to walk at least 2-3 times a day and get out of bed. GRIS ARGAON MD DR: HUSAM/pedro JOB#: [id number] / [id number]
[2020-10-04] MEDS: PIPERACILLIN/TAZOBACTAM 4.5 GM in IV NORMAL SALINE 50ML 50 ML IV SCH ×3 (05:39→21:18)
[2020-10-04] MEDS: NALOXEGOL OXALATE 25 MG TABLET. PO SCH (05:40)
[2020-10-04 06:07] VITALS: BP 148/86
[2020-10-04] MEDS: IPRATROPIUM/ALBUTEROL 20/100mcg/INH INHALER. INH SCH ×4 (08:00→20:00)
[2020-10-04] MEDS: FLUoxetine HCL 20 MG CAPSULE PO SCH (08:21)
[2020-10-04] MEDS: FENOFIBRATE NANOCRYSTALLIZED 145 MG TABLET PO SCH (08:21)
[2020-10-04] MEDS: DEXAMETHASONE SOD PHOS 4 MG/ML VIAL. IVP SCH ×2 (08:21→21:17)
[2020-10-04] MEDS: ENOXAPARIN ** NOTE DOSE ** SYRINGE SQ SCH ×2 (08:21→21:00)
[2020-10-04] MEDS: COLCHICINE 0.6 MG TABLET. PO SCH (08:22)
[2020-10-04] MEDS: DOCUSATE SODIUM 100 MG CAPSULE PO SCH (08:22)
[2020-10-04] MEDS: LACTOBACILLUS RHAMNOSUS GG 1 CAPSULE. PO SCH ×2 (08:22→21:16)
[2020-10-04] MEDS: POTASSIUM CHLORIDE 20 MEQ TABLET.ER. PO SCH (08:22)
[2020-10-04] MEDS: glipiZIDE 5 MG TABLET PO SCH ×2 (08:22→17:00)
[2020-10-04] MEDS: metFORMIN 500 MG TABLET PO SCH ×2 (08:22→17:00)
[2020-10-04] MEDS: TAMSULOSIN 0.4 MG CAP.ER.24H. PO SCH (08:22)
[2020-10-04] MEDS: INSULIN LISPRO 300 UNITS/3 ML VIAL. SQ SCH ×6 (08:28→17:04)
[2020-10-04] MEDS: INSULIN GLARGINE SYRINGE. SQ SCH ×2 (08:29→21:00)
[2020-10-04] MEDS: HYDROcodone/APAP 5/325MG 1 TAB TABLET PO PRN (08:33)
[2020-10-04] MEDS: METOPROLOL TART IMMED RELEASE 25 MG TABLET. PO SCH ×2 (09:00→21:17)
[2020-10-04] MEDS: POLYETHYLENE GLYCOL 3350 17 GM PACKET. PO SCH (09:00)
--- NOTE | 2020-10-04 10:11 | EKG ---
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
[2020-10-04 11:24] VITALS: BP 145/85
[2020-10-04 13:18] LABS: ALBUMIN 2.2 g/dL (3.4-5.0); ALBUMIN/GLOBULIN RATIO 0.4 (1.0-1.7); CREATININE 1.5 mg/dL (0.7-1.3); GFR 47.1; POTASSIUM 3.9 mmol/L (3.5-5.1); TOTAL BILIRUBIN 0.4 mg/dL (0.2-1.0); TOTAL PROTEIN 7.2 g/dL (6.4-8.2)
--- NOTE | 2020-10-04 19:00 | PN ---
DATE: SUBJECTIVE: A 64-year-old male that is in with COVID-19 bilateral lobe pneumonia, acute respiratory failure, on oxygen with hypoxia and hypokalemia. The patient was started on remdesivir last night because of his drop in his oxygen saturation has made a remarkable recovery up to 2 liters on 97%, blood pressure 140/80, respiratory rate 18, pulse 50. He is presently afebrile, breathing a little bit easier overall and making fairly good progress with that number. Blood sugars are also coming down with tapering down of his Decadron. The patient continues to be monitored carefully, make further evaluation on him as indicated. OBJECTIVE LUNGS: Diminished, but basically clearer than they have been. CARDIOVASCULAR: Regular sinus rhythm. ABDOMEN: Protuberant. EXTREMITIES: No clubbing, cyanosis or edema. NEUROLOGIC: At baseline. IMPRESSION: Therefore, bilateral lobe COVID-19 pneumonia, acute respiratory failure with hypoxia, severe hypokalemia, hyponatremia, morbid obesity, type 2 diabetes, poorly controlled, hepatic steatosis, constipation, ataxia, generalized deconditioning. PLAN: Continue to monitor the patient accordingly and make further evaluation with the protocol as noted above. GRIS ARAGON MD DR: HUSAM/pedro JOB#: [id number] / [id number]
[2020-10-04] MEDS ORDERED: REMDESIVIR 100mg in NORMAL SALINE 250ML X 4 DAYS IV SCH (20:00)
[2020-10-04 20:03] VITALS: BP 153/73
[2020-10-04] MEDS: HYDROcodone/APAP 7.5/325MG 1 TAB TABLET PO PRN (21:17)
[2020-10-04] MEDS: ATORVASTATIN CALCIUM 20 MG TABLET PO SCH (21:17)
[2020-10-04] MEDS: ZOLPIDEM 5 MG TABLET. PO PRN (21:18)
[2020-10-04 22:35] VITALS: BP 137/77
[2020-10-05] MEDS: PIPERACILLIN/TAZOBACTAM 4.5 GM in IV NORMAL SALINE 50ML 50 ML IV SCH ×3 (05:29→21:49)
[2020-10-05] MEDS: NALOXEGOL OXALATE 25 MG TABLET. PO SCH (05:29)
[2020-10-05] MEDS: IPRATROPIUM/ALBUTEROL 20/100mcg/INH INHALER. INH SCH ×4 (08:00→21:00)
[2020-10-05] MEDS: ENOXAPARIN ** NOTE DOSE ** SYRINGE SQ SCH ×2 (08:50→21:44)
[2020-10-05] MEDS: FENOFIBRATE NANOCRYSTALLIZED 145 MG TABLET PO SCH (08:52)
[2020-10-05] MEDS: ACETAMINOPHEN 325 MG TABLET PO PRN (08:52)
[2020-10-05] MEDS: FLUoxetine HCL 20 MG CAPSULE PO SCH (08:52)
[2020-10-05] MEDS: TAMSULOSIN 0.4 MG CAP.ER.24H. PO SCH (08:52)
[2020-10-05] MEDS: DEXAMETHASONE SOD PHOS 4 MG/ML VIAL. IVP SCH ×2 (08:52→21:41)
[2020-10-05] MEDS: LACTOBACILLUS RHAMNOSUS GG 1 CAPSULE. PO SCH ×2 (08:52→21:43)
[2020-10-05] MEDS: DOCUSATE SODIUM 100 MG CAPSULE PO SCH (08:53)
[2020-10-05] MEDS: FUROSEMIDE 20 MG TABLET PO SCH (08:53)
[2020-10-05] MEDS: metFORMIN 500 MG TABLET PO SCH ×2 (08:53→16:43)
[2020-10-05] MEDS: POTASSIUM CHLORIDE 20 MEQ TABLET.ER. PO SCH (08:53)
[2020-10-05] MEDS: COLCHICINE 0.6 MG TABLET. PO SCH (08:53)
[2020-10-05] MEDS: glipiZIDE 5 MG TABLET PO SCH ×2 (08:53→16:43)
[2020-10-05] MEDS: INSULIN LISPRO 300 UNITS/3 ML VIAL. SQ SCH ×6 (08:54→17:00)
[2020-10-05] MEDS: INSULIN GLARGINE SYRINGE. SQ SCH ×2 (08:57→21:45)
[2020-10-05] MEDS: METOPROLOL TART IMMED RELEASE 25 MG TABLET. PO SCH ×2 (08:58→21:43)
[2020-10-05] MEDS: POLYETHYLENE GLYCOL 3350 17 GM PACKET. PO SCH (09:00)
[2020-10-05 10:57] VITALS: BP 147/63
[2020-10-05 14:38] VITALS: BP 168/87
[2020-10-05 18:25] LABS: ALBUMIN 2.2 g/dL (3.4-5.0); ALBUMIN/GLOBULIN RATIO 0.4 (1.0-1.7); CREATININE 1.5 mg/dL (0.7-1.3); GFR 47.1; POTASSIUM 4.1 mmol/L (3.5-5.1); TOTAL BILIRUBIN 0.3 mg/dL (0.2-1.0); TOTAL PROTEIN 7.2 g/dL (6.4-8.2)
[2020-10-05 19:56] VITALS: BP 167/79
[2020-10-05] MEDS: BUTALB/APAP/CAFEIN 50/325/40MG TABLET. PO PRN (21:42)
[2020-10-05] MEDS: ATORVASTATIN CALCIUM 20 MG TABLET PO SCH (21:42)
[2020-10-05] MEDS: ZOLPIDEM 5 MG TABLET. PO PRN (21:43)
--- NOTE | 2020-10-05 21:50 | PN ---
DATE: SUBJECTIVE: A 64-year-old male in with COVID-19 pneumonia and respiratory failure. His swab came back negative for the COVID, so it looks like he is cleared that. He has been on a couple of days of remdesivir. He continues on IV antibiotic therapy for a pneumonic process that was noted in his lungs, possibly even multilobar pneumonia. He is doing somewhat better. Oxygenation on room air 94%. OBJECTIVE: VITAL SIGNS: Blood pressure 150/80, respiratory rate 20, pulse 60, afebrile. GENERAL: The patient is alert and oriented. LUNGS: Diminished throughout, poor movement of air. CARDIOVASCULAR: Regular sinus rhythm, S1, S2. ABDOMEN: Protuberant, soft, nontender. EXTREMITIES: No clubbing, cyanosis, nor edema. IMPRESSION: COVID-19 pneumonia, multilobar pneumonia, type 2 diabetes, morbid obesity. PLAN: Continue on IV antibiotic therapy. Continue with PT, OT and hopefully ready for discharge in the following day. GRIS ARAGON MD DR: HUSAM/pedro JOB#: [id number] / [id number]
[2020-10-05 22:37] VITALS: BP 175/77
[2020-10-06] MEDS: PIPERACILLIN/TAZOBACTAM 4.5 GM in IV NORMAL SALINE 50ML 50 ML IV SCH ×2 (05:45→14:00)
[2020-10-06 06:18] VITALS: BP 144/83
[2020-10-06 07:35] LABS: ALBUMIN 2.2 g/dL (3.4-5.0); ALBUMIN/GLOBULIN RATIO 0.5 (1.0-1.7); CALCIUM 9.2 mg/dL (8.5-10.1); CREATININE 1.5 mg/dL (0.7-1.3); GFR 47.1; POTASSIUM 4.5 mmol/L (3.5-5.1); TOTAL BILIRUBIN 0.3 mg/dL (0.2-1.0); TOTAL PROTEIN 6.9 g/dL (6.4-8.2)
[2020-10-06] MEDS: IPRATROPIUM/ALBUTEROL 20/100mcg/INH INHALER. INH SCH ×2 (08:00→12:00)
[2020-10-06] MEDS: POTASSIUM CHLORIDE 20 MEQ TABLET.ER. PO SCH (08:11)
[2020-10-06] MEDS: ENOXAPARIN ** NOTE DOSE ** SYRINGE SQ SCH (08:11)
[2020-10-06 08:12] VITALS: BP 144/83
[2020-10-06] MEDS: COLCHICINE 0.6 MG TABLET. PO SCH (08:12)
[2020-10-06] MEDS: METOPROLOL TART IMMED RELEASE 25 MG TABLET. PO SCH (08:12)
[2020-10-06] MEDS: DOCUSATE SODIUM 100 MG CAPSULE PO SCH (08:12)
[2020-10-06] MEDS: FLUoxetine HCL 20 MG CAPSULE PO SCH (08:12)
[2020-10-06] MEDS: glipiZIDE 5 MG TABLET PO SCH (08:12)
[2020-10-06] MEDS: LACTOBACILLUS RHAMNOSUS GG 1 CAPSULE. PO SCH (08:12)
[2020-10-06] MEDS: metFORMIN 500 MG TABLET PO SCH (08:12)
[2020-10-06] MEDS: TAMSULOSIN 0.4 MG CAP.ER.24H. PO SCH (08:12)
[2020-10-06] MEDS: POLYETHYLENE GLYCOL 3350 17 GM PACKET. PO SCH (08:13)
[2020-10-06] MEDS: NALOXEGOL OXALATE 25 MG TABLET. PO SCH (08:14)
[2020-10-06] MEDS: DEXAMETHASONE SOD PHOS 4 MG/ML VIAL. IVP SCH (08:14)
[2020-10-06] MEDS: INSULIN GLARGINE SYRINGE. SQ SCH (08:16)
[2020-10-06] MEDS: INSULIN LISPRO 300 UNITS/3 ML VIAL. SQ SCH ×4 (08:16→12:19)
[2020-10-06] MEDS: FENOFIBRATE NANOCRYSTALLIZED 145 MG TABLET PO SCH (08:24)
[2020-10-06] MEDS ORDERED: CEFD300C PO (11:46)
[2020-10-06] MEDS ORDERED: INSU100I11 SQ (11:46)
[2020-10-06] MEDS ORDERED: DEXA4TAB63 PO (11:46)
[2020-10-06] MEDS ORDERED: IPRA3AMP29 NEB (11:46)
--- NOTE | 2020-10-06 13:00 | DS ---
DATE OF DISCHARGE: HOSPITAL COURSE: A 64-year-old gentleman who was positive for COVID-19 as an outpatient. The computer in-house gave me best reading. In any case, he came in with acute respiratory failure with hypoxia with COVID-19 pneumonia. He is a diabetic. He is morbidly obese. He had multiple risk factors. He had not responded to outpatient therapy and became increasingly dyspneic and hypoxic. Oxygen saturation dropped down to 86%. He required BiPAP and CPAP to maintain oxygen levels above 90. He had been started on IV antibiotic therapy. He at one time cleared somewhat and then he regressed and had a secondary pneumonic process. The patient was technically septic because of his elevated temperature as well as his hypoxia. As noted, he did improve and that he had a relapse with a known pneumonic process. The patient in turn made fairly good progress. He was still very weak. He still required oxygen at the time of discharge. PICC line was left in place in case he was placed on oral antibiotics as far an outpatient and then the tapering doses of Decadron. His diabetes is also a big concern, some confusion on his medications he has at home. He will follow up recalling when he gets home to me for that number given. The patient also was complaining of severe headaches and there CT scan was negative. The patient's labs showed elevated white counts, but that may have been also secondary to the Decadron that was given. He was treated along with protocol for his COVID-19. He as noted was placed on remdesivir when his oxygen saturation dropped down into the 80s. He also has severe protein malnutrition, chronic kidney disease stage 3a and of course, his diabetes was also brought under control with sliding scales and long-acting insulins. The patient was discharged home per his request. He will continue on home oxygen. IMPRESSION: Therefore, COVID-19 pneumonia, acute respiratory failure secondary to the COVID-19 pneumonia, severe protein malnutrition, sepsis, type 2 diabetes, exacerbated by use of Decadron for the COVID-19, chronic kidney disease stage 3a, hepatic steatosis, morbid obesity, hypoxia, sleep apnea. See MRAD. Decreased activity, told to isolate from other people for now and follow up accordingly in the next 3-4 days in the office with all his home medications. He is to get my number, he will call me. He will be on a diabetic diet, decreased activity. PLAN: As above. GRIS ARAGON MD DR: HUSAM/pedro JOB#: [id number] / [id number]
== END 2020-10-06 14:34 | disposition home health service (06) | DRG 871 ==
LOC: 1 SOUTH 14:17
PROVIDERS: ADMIT Family Medicine; ATTEND Family Medicine
PROC: 5A09357 Assistance with Respiratory Ventilation, Less than 24 Consecutive Hours, Continuous Positive Airway Pressure (ICD-10-PCS; principal; 2020-09-24)
PROC: 5A09357 Assistance with Respiratory Ventilation, Less than 24 Consecutive Hours, Continuous Positive Airway Pressure (ICD-10-PCS; 2020-09-25)
PROC: 5A09357 Assistance with Respiratory Ventilation, Less than 24 Consecutive Hours, Continuous Positive Airway Pressure (ICD-10-PCS; 2020-09-26)
PROC: 5A09357 Assistance with Respiratory Ventilation, Less than 24 Consecutive Hours, Continuous Positive Airway Pressure (ICD-10-PCS; 2020-09-28)
PROC: 5A09357 Assistance with Respiratory Ventilation, Less than 24 Consecutive Hours, Continuous Positive Airway Pressure (ICD-10-PCS; 2020-09-29)
PROC: 5A09357 Assistance with Respiratory Ventilation, Less than 24 Consecutive Hours, Continuous Positive Airway Pressure (ICD-10-PCS; 2020-09-30)
PROC: 5A09357 Assistance with Respiratory Ventilation, Less than 24 Consecutive Hours, Continuous Positive Airway Pressure (ICD-10-PCS; 2020-10-01)
PROC: 5A09357 Assistance with Respiratory Ventilation, Less than 24 Consecutive Hours, Continuous Positive Airway Pressure (ICD-10-PCS; 2020-10-03)
DX: A41.89 Other specified sepsis (principal); E43 Unspecified severe protein-calorie malnutrition; J12.82 Pneumonia due to coronavirus disease 2019; J96.01 Acute respiratory failure with hypoxia; U07.1 COVID-19; Z68.41 Body mass index [BMI] 40.0-44.9, adult; E87.1 Hypo-osmolality and hyponatremia; E11.22 Type 2 diabetes mellitus with diabetic chronic kidney disease; E11.649 Type 2 diabetes mellitus with hypoglycemia without coma; E11.65 Type 2 diabetes mellitus with hyperglycemia; E66.01 Morbid (severe) obesity due to excess calories; E87.6 Hypokalemia; G47.30 Sleep apnea, unspecified; I12.9 Hypertensive chronic kidney disease with stage 1 through stage 4 chronic kidney disease, or unspecified chronic kidney disease; J43.9 Emphysema, unspecified; K59.00 Constipation, unspecified; K76.0 Fatty (change of) liver, not elsewhere classified; N18.31 Chronic kidney disease, stage 3a; R27.0 Ataxia, unspecified
CPT/HCPCS: 36415; 36569; 70450; 71045; 71250; 74022; 80048; 80053; 82550; 82947; 84484; 85025; 85027; 87426; 93005; J0696; J1100; J1650; J1815; J1956; J2543; J2920; J2930; J3480; J7050; U0003; 97110; 97530; 97535; J7030

== ENCOUNTER → 2021-06-17 | Outpatient (CLI) | payer BC, MEDICARE ==
[~2021-06-17] MED LIST changes: +ATOR20TA PO; +CEFD300C PO; +CLIN-95 PO; -CLIN300C9 PO; +DEXA4TAB63 PO; +FLUO10TA PO; +GLIP5TAB10 PO; +INSU100I11 SQ; +INSU100V37 SQ; +IPRA3AMP29 NEB; +METF500T16 PO; +METO5TAB4 PO; +POTA-121 PO; +SEMA1PEN SQ; +SEMA3TAB PO; +SPIR50TA4 PO; -VANC1VIA3 MC; +VANC1VIA37 MC
[2021-06-17 14:36] LABS: CREATININE 1.8 mg/dL (0.7-1.3); GFR 38.1
[2021-06-17 15:36] LABS: POTASSIUM 2.8 mmol/L (3.5-5.1)
== END ==
LOC: LAB 09:25
PROVIDERS: ATTEND Internal Medicine Cardiovascular Disease
DX: I10 Essential (primary) hypertension (principal)
CPT/HCPCS: 36415; 80048

== ENCOUNTER → 2021-06-21 | Outpatient (CLI) | payer BC, MEDICARE ==
[2021-06-21 11:04] LABS: CALCIUM 10.6 mg/dL (8.5-10.1); CREATININE 2.1 mg/dL (0.7-1.3); GFR 31.9
== END ==
LOC: LAB 10:08
PROVIDERS: ATTEND Internal Medicine Cardiovascular Disease
DX: I10 Essential (primary) hypertension (principal)
CPT/HCPCS: 36415; 80048

== ENCOUNTER → 2021-07-03 | Outpatient (CLI) | payer BC ==
[2021-07-03 10:55] LABS: CALCIUM 9.3 mg/dL (8.5-10.1); CREATININE 1.7 mg/dL (0.7-1.3); GFR 40.7; POTASSIUM 3.4 mmol/L (3.5-5.1)
== END ==
LOC: LAB 10:04
PROVIDERS: ATTEND Internal Medicine Cardiovascular Disease
DX: I10 Essential (primary) hypertension (principal)
CPT/HCPCS: 36415; 80048

== ENCOUNTER → 2021-07-10 | Outpatient (CLI) | payer BC ==
[~2021-07-10] MED LIST changes: +APIX5TAB3 PO; +BACL10TA PO; +DOCU-109 PO; +OXYC20TA35 PO; +PANT40TA6 PO; +SODI44SP NS
[2021-07-10 14:38] LABS: CREATININE 1.8 mg/dL (0.7-1.3); GFR 38.1; POTASSIUM 3.5 mmol/L (3.5-5.1)
== END ==
LOC: LAB 12:40
PROVIDERS: ATTEND Internal Medicine Cardiovascular Disease
DX: I10 Essential (primary) hypertension (principal); R06.02 Shortness of breath; R07.9 Chest pain, unspecified
CPT/HCPCS: 36415; 80048

== ENCOUNTER 2021-07-14 02:19 | Inpatient (IN) | payer BC, MEDICARE ==
[~2021-07-14] VITALS: Ht 170.2 cm; Wt 143.0 kg
[~2021-07-14 02:19] MED LIST changes: -APIX5TAB3 PO; -BACL10TA PO; -DOCU-109 PO; -OXYC20TA35 PO; -PANT40TA6 PO; -SODI44SP NS
--- NOTE | 2021-07-14 02:49 | PHYS DOC ---
Past History Past Medical History: Diabetes, DVT, High Cholesterol, Hypertension, Other Past Surgical History: Other Alcohol Use: Occasionally Drug Use: None Adult General Chief Complaint Chief Complaint: DYSPNEA/RESPIRATOY DISTRESS HPI HPI Patient is a 65-year-old male with a past medical history of insulin-dependent diabetes, DVT, hypertension and hyperlipidemia as well as obesity, COPD and obstructive sleep apnea who presents with a chief complaint of shortness of breath has been worsening over the last couple of days and approximately half an hour before coming into the emergency department got acutely worse, feeling he is unable to take a deep breath with some generalized chest discomfort but no pain. Endorses neck pain, worse than usual but was recently diagnosed with a pinched nerve in his neck. States that it woke him up out of his sleep and then started with the shortness of breath. Denies any recent traumas, travels, fevers, abdominal pain, nausea, vomiting, dysuria, hematuria, blood in the stool or diarrhea. Does have a history of Covid pneumonia 6 months ago. Review of Systems Review of Systems Review of systems otherwise unremarkable except noted in HPI Allergies Allergies Allergies Coded Allergies Type Severity Reaction Last Updated Verified lisinopril Allergy Severe breathing difficulty, closed throat 03/26/15 Yes Sulfa (Sulfonamide Antibiotics) Allergy Intermediate Hives 02/15/16 No amlodipine Allergy Unknown 09/24/20 Yes Physical Exam Physical Exam Constitutional: Well developed, well nourished, looks ill, appears in distress stating he is having a hard time catching his breath, grasping his chest and stating it is neck really hurt HENT: Normocephalic, atraumatic,oropharynx dry, no oral exudates, nose normal. [] Eyes: Extraocular movements intact but seems to be some asymmetry in alignment, pupils 2 mm bilaterally and sluggishly reactive bilaterally, conjunctiva normal, no discharge. [] Neck: Normal range of motion, no tenderness, supple, no stridor. [] Cardiovascular: Sinus bradycardia with PVCs Lungs & Thorax: Bilateral breath sounds relatively clear may be with scant rhonchi, tachypneic but no real increased work of breathing Abdomen: soft, no tenderness, no masses, no pulsatile masses. [] Skin: Warm, dry, no erythema, no rash. [] Back: No tenderness, no CVA tenderness. [] Extremities: No tenderness, no cyanosis, no clubbing, ROM intact, no edema. [] Neurologic: Alert and oriented X 3 but seems slightly confused or is having a hard time answering questions immediately, normal motor function, normal sensory function, able to sit, stand and walk without issue, no focal deficits noted. [] Psychologic: Affect normal, judgement normal, mood normal. [] Current Patient Data Lab Results Laboratory Tests Test 07/14/21 02:34 Glucose (Fingerstick) 197 mg/dL (70-99) H EKG EKG [] Radiology/Procedures Radiology/Procedures [] Heart Score C/O Chest Pain: No Risk Factors: Risk Factors: DM, Current or recent (<one month) smoker, HTN, HLP, family history of CAD, obesity. Risk Scores: Risk Factors: DM, Current or recent (<one month) smoker, HTN, HLP, family history of CAD, obesity. Course & Med Decision Making Course & Med Decision Making Patient is a 65-year-old male who presents with shortness of breath, chest and neck pain Vital signs notable for sinus bradycardia. Physical exam noted above. Placed on the monitor with IV access established. Started on some IV fluid. Cardiac pads in place. EKG with a rate of 58, QRS of 102, QTc 444, PVCs, no STEMI. Given patient's overall clinical picture of neurologic findings plus chest pain plus shortness of breath, differential included stroke versus MD versus inf ection versus some sort of vascular insufficiency of the chest or abdomen versus toxidrome Discussed findings with patient and and work-up including imaging of the head, chest, abdomen and pelvis. Patient and agreed with plan. did state that he started taking a new medication today, baclofen for his muscle spasms and neck pain as well as hydrocodone. Laboratory analysis with mildly elevated creatinine with initial troponin normal. Imaging of the head with CT and CTA of the head and neck not concerning. CT of the chest showing patchy opacities in bilateral lungs which could be infectious in nature with a possibility of aspiration pneumonia and possible mesenteric panniculitis. Blood cultures obtained. Started on broad- spectrum antibiotics. Patient's central nervous system sedating agent held this morning until a med reconciliation can be done as an inpatient. ACS rule out including 2 more troponins and EKGs pending. Discussed all findings with family and recommended admission to [facility] under Dr. Gayle. Family grateful, verbalized understanding agree with plan of admission. [] Dragon Disclaimer Dragon Disclaimer This electronic medical record was generated, in whole or in part, using a voice recognition dictation system. Departure Departure: Impression: Primary Impression: Shortness of breath Additional Impressions: Chest pain Neck pain Back pain Disposition: ADMITTED INPATIENT Admitting Physician: Lenny Delaney Condition: IMPROVED Referrals: LENNY DELANEY MD (PCP) Problem Qualifiers MARCELLA MALDONADO MD Jul 14, 2021 02:49
[2021-07-14] MEDS ORDERED: IOHEXOL 350 MG/ML 100 ML VIAL. ONE (02:57)
[2021-07-14] MEDS ORDERED: NALOXONE 0.4 MG/ML VIAL. ONE (02:58)
[2021-07-14 03:00] LABS: BASO # 0.1 x10^3/uL (0.0-0.2); BASO % 1 % (0-3); EOS # 0.4 x10^3/uL (0.0-0.7); EOS % 4 % (0-3); HEMATOCRIT 38.5 % (39.0-53.0); HEMOGLOBIN 13.2 g/dL (13.0-17.5); LYMPH # 3.1 x10^3/uL (1.0-4.8); LYMPH % 32 % (24-48); MEAN CORPUSCULAR HEMOGLOBIN 34 pg (25-35); MEAN CORPUSCULAR HGB CONC 34 g/dL (31-37); MEAN CORPUSCULAR VOLUME 99 fL (79-100); MONO # 0.8 x10^3/uL (0.0-1.1); MONO % 8 % (0-9); NEUT # 5.5 x10^3uL (1.8-7.7); NEUT % 56 % (31-73); PLATELET COUNT 207 x10^3/uL (140-400); RED CELL DISTRIBUTION WIDTH 13.8 % (11.5-14.5); WHITE BLOOD COUNT 9.8 x10^3/uL (4.0-11.0)
[2021-07-14] MEDS ORDERED: IV RINGERS SOLUTION,LACTATED 1,000 ML IV ONE ×2 (03:00→05:30)
--- NOTE | 2021-07-14 03:05 | EKG ---
[address] [address] Test Date: 2021-07-14 Test Time: 02:28:11 Pat Name: NICOLE OCHOA Department: Room: Gender: M Time Clock Inspector: : 1955 Requested By: MARCELLA MALDONADO Order Number: [id number] Reading MD: Donald Andrews MD Measurements Intervals [place] Rate: 58 P: 42 PA: 190 QRS: 31 QRSD: 102 T: 16 QT: 448 QTc: 444 Interpretive Statements SINUS RHYTHM VENTRICULAR PREMATURE COMPLEX(ES) Electronically Signed On 07-14-2021 20:23:37 PIANO REGULATOR by Donald Andrews MD
[2021-07-14 03:25] LABS: CALCIUM 9.4 mg/dL (8.5-10.1); CREATININE 2.3 mg/dL (0.7-1.3); GFR 28.7; POTASSIUM 3.3 mmol/L (3.5-5.1)
[2021-07-14 03:31] LABS: ALBUMIN 3.8 g/dL (3.4-5.0); MAGNESIUM 2.5 mg/dL (1.8-2.4); TOTAL BILIRUBIN 0.3 mg/dL (0.2-1.0); TOTAL PROTEIN 7.8 g/dL (6.4-8.2)
[2021-07-14] MEDS ORDERED: CONTRAST GIVEN. MC PRN (03:45)
[2021-07-14 03:49] LABS: BACTERIA,URINE FEW /HPF (0-FEW); BILIRUBIN,URINE NEG (NEG); CLARITY,URINE CLEAR; COLOR,URINE YELLOW; GLUCOSE,URINE NEG (NEG); NITRITE,URINE NEG (NEG); SQUAMOUS EPITHELIAL CELL,UR OCC /LPF; UROBILINOGEN,URINE 0.2 mg/dL (0.2 mg/dL)
--- NOTE | 2021-07-14 03:50 | RAD ---
INDICATION: Reason: AMS / Spl. Instructions: / History: COMPARISON: September 2020 TECHNIQUE: Axial CT images obtained through the head without intravenous contrast. One or more of the following individualized dose reduction techniques were utilized for this examinat ion: 1. Automated exposure control; 2. Adjustment of the mA and/or kV according to patient size; 3 . Use of iterative reconstruction technique. FINDINGS: No intracranial hemorrhage. No significant midline shift. Ventricles and sulci are globally prominent. Scattered foci of low attenuation within the white matter. IMPRESSION: * No acute intracranial hemorrhage. * Scattered regions of low attenuation within the white matter. Non-specific in nature but a common finding and frequently secondary to small vessel ischemic disease. Electronically signed by: Irvin Robertson MD (07/14/2021 3:48 AM) [id number]
[2021-07-14] MEDS ORDERED: NALOXONE 0.4 MG/ML VIAL. IV ONE (04:00)
[2021-07-14] MEDS ORDERED: IOHEXOL 350 MG/ML 100 ML VIAL. IV ONE ×2 (04:00)
--- NOTE | 2021-07-14 04:04 | RAD ---
INDICATION: Reason: soa, chest pain, abdomen pain, OMNI 350, 100ml / Spl. Instructions: / History: . COMPARISON: February 2016 CT chest report TECHNIQUE: Axial CT images obtained through the chest, abdomen and pelvis with contrast with three-dimensional i mages processed of the chest per angiogram protocol. One or more of the following individualized dose reduction techniques were utilized for this examinat ion: 1. Automated exposure control; 2. Adjustment of the mA and/or kV according to patient size; 3 . Use of iterative reconstruction technique. FINDINGS: Chest: Patchy opacities at the bilateral lungs. There is very little contrast seen within the thoracic aorta therefore not well evaluated. Calcific a therosclerosis is seen. Ascending thoracic aorta measures up to about 43 mm. Coronary artery calcific atherosclerosis. Very limited evaluation for pulmonary embolus secondary to motion and contrast bolus timing. No defin ite embolus in the main pulmonary artery but largely nondiagnostic throughout the pulmonary arteries. The aortic lumen is not evaluated secondary to lack of contrast within. Degenerative changes spine. Abdomen and pelvis: Atherosclerotic disease throughout the abdominal aorta. Fat-containing inguinal hernias. Aortic lumen is not well evaluated secondary to lack of contrast within. Liver is low density. Nonspecific but can be seen with fatty infiltration. Postcholecystectomy change s. Liver prominent in size. There is couple of small low-density liver lesions which are too small to characterize but a common finding. No peripancreatic fluid collection. No perisplenic hematoma. There is some nonspecific haziness the fat within a portion of the mesentery. No hydronephrosis. Cont rast is seen within the partially distended urinary bladder. Right renal cyst is suspected. Colonic diverticulosis. Suspected appendix does not appear dilated. There is some fullness of the pancreatic uncinate process region with some nodularity in the area. Degenerative changes the spine with multilevel central canal and neural foraminal stenosis. IMPRESSION: * Patchy opacities in bilateral lungs which could be infectious in nature with other possible causes including aspiration. Follow-up could be obtained to ensure this resolves to exclude a persistent no dule. * There is almost no contrast within the aortic vasculature therefore the lumen is not evaluated. Th ere is some dilatation of the ascending thoracic aorta as well as calcific atherosclerosis. * Highly limited evaluation for pulmonary embolus secondary to motion and contrast within the pulmon danisha arteries. No definite embolus is seen in the main pulmonary artery but the majority of the vessel s are nondiagnostic. * Fullness of the pancreatic uncinate process region with mild edema to the adjacent fat. This edema to the fat as well as nodularity could be from causes such as mesenteric panniculitis but consider o btaining a follow-up CT or MRI pancreatic protocol on a nonemergent basis to ensure that there is no lesion in the area contributing to this appearance given the nodularity at this site. Additionally a superimposed pancreatitis or inflammation to the small bowel in this region from enteritis is not exc luded given the nodularity and edema. Electronically signed by: Irvin Robertson MD (07/14/2021 4:02 AM) [id number]
[2021-07-14 04:35] LABS: ACETAMIN < 2.0 mcg/mL (10-30); SALIC 2.8 mg/dL (2.8-20.0)
--- NOTE | 2021-07-14 04:58 | RAD ---
INDICATION: Reason: AMS, OMNI 350, 75ml / Spl. Instructions: / History: COMPARISON: CT head from same day TECHNIQUE: Axial CT images obtained through the head and neck arterial vasculature with intravenous contrast. 3 D images were processed per protocol. Estimates of carotid stenosis based on criteria that correlates with NASCET. One or more of the following individualized dose reduction techniques were utilized for this examinat ion: 1. Automated exposure control; 2. Adjustment of the mA and/or kV according to patient size; 3 . Use of iterative reconstruction technique. FINDINGS: Head and Neck Angio: There is very little contrast within the arterial vasculature including at the partially visualized t horacic aorta but calcific atherosclerosis is seen. Portions of the neck arterial vasculature including both the carotid system as well as the vertebral arteries have very little or no contrast within therefore poorly evaluated. Scattered calcific atherosclerosis is seen within the carotid vasculature bilaterally. Small amount contrast is seen within the basilar artery which is small in caliber. Small amount contr ast is seen at the proximal posterior cerebral arteries bilaterally which are small in size and not w ell evaluated distally secondary to small size and suboptimal contrast. There is some luminal irregul arity seen within the anterior and posterior circulation which could be secondary to atherosclerotic disease. Calcific atherosclerosis is seen at the carotid siphon with some contrast seen within the distal inte rnal carotid arteries bilaterally with suboptimal contrast opacification. Contrast is seen within the proximal anterior cerebral arteries which are small in caliber and not well evaluated distally secon marry to small size as well as motion and limited contrast bolus. There is also some contrast seen within the proximal middle cerebral arteries with luminal irregulari ty which can be seen with plaque. The majority of the middle cerebral arteries are not well evaluated secondary to small vessel size as well as limited contrast bolus. Degenerative changes of the cervical spine with multilevel central canal and neural foraminal stenosi s. IMPRESSION: * Large portions of the head and neck arterial vasculature nondiagnostic secondary to very little co ntrast within as well as motion and small vessel size. There is atherosclerotic disease seen througho ut. If there is high concern for stroke clinically MRI could further assess given the limited nature of this exam. * Degenerative changes of cervical spine with multilevel central canal and neural foraminal stenosis . Electronically signed by: Irvin Robertson MD (07/14/2021 4:55 AM) [id number]
[2021-07-14 05:06] LABS: INFLUENZA A PATIENT NEGATIVE (NEGATIVE); INFLUENZA B PATIENT NEGATIVE (NEGATIVE)
[2021-07-14] MEDS ORDERED: IV NORMAL SALINE 50ML 50 ML ONE (05:06)
[2021-07-14] MEDS ORDERED: cefTRIAXone SODIUM 1 GM VIAL ONE (05:06)
[2021-07-14] MEDS ORDERED: KETOROLAC 30 MG/ML VIAL. ONE (05:26)
[2021-07-14] MEDS ORDERED: AZITHROMYCIN 250 MG TABLET. PO ONE (05:30)
[2021-07-14] MEDS ORDERED: MORPHINE SULFATE 2 MG/ML DISP.SYRIN. IV ONE (05:30)
[2021-07-14] MEDS ORDERED: KETOROLAC 15 MG/ML VIAL. IVP ONE (05:30)
[2021-07-14] MEDS ORDERED: ACETAMINOPHEN 500 MG TABLET PO ONE ×2 (05:30→15:30)
[2021-07-14 16:58] VITALS: BP 160/74
--- NOTE | 2021-07-14 17:26 | NUR ---
pt arrived to the unit at approx 1700 via ems from the er. Pt had belongings with him and home med bag. pharmacy called to lock up home meds. Dr Delaney notified that the pt was on the unit. pt settled in the room and given dinner as well as informed that dr delaney was notified that he was here.
[2021-07-14] MEDS ORDERED: PIP/TAZO PER PHARMACY MC PRN (19:15)
[2021-07-14] MEDS ORDERED: HYDROcodone/APAP 7.5/325MG 1 TAB TABLET PO PRN (19:15)
[2021-07-14] MEDS ORDERED: levoFLOXacin PER PHARMACY 1 EACH. MC PRN (19:15)
[2021-07-14] MEDS ORDERED: diazePAM 5 MG TABLET. PO PRN (19:30)
[2021-07-14] MEDS ORDERED: MORPHINE SULFATE 2 MG/ML DISP.SYRIN. IV PRN (19:30)
[2021-07-14] MEDS ORDERED: IPRATRPIUM/ALBUTEROL 0.5/2.5MG 3 ML NEBU. NEB SCH (20:00)
[2021-07-14] MEDS: PIPERACILLIN/TAZOBACTAM 3.375 GM in IV NORMAL SALINE 50ML 50 ML IV SCH (20:15)
[2021-07-14] MEDS: METOPROLOL TART IMMED RELEASE 25 MG TABLET. PO SCH (20:15)
[2021-07-14] MEDS: APIXABAN 5 MG TABLET. PO SCH (20:16)
[2021-07-14] MEDS: FUROSEMIDE 20 MG TABLET PO SCH (20:16)
[2021-07-14] MEDS: IPRATRPIUM/ALBUTEROL 0.5/2.5MG 3 ML NEBU. NEB SCH (21:21)
[2021-07-15] MEDS: PIPERACILLIN/TAZOBACTAM 3.375 GM in IV NORMAL SALINE 50ML 50 ML IV SCH ×4 (00:32→17:07)
[2021-07-15] MEDS: IPRATRPIUM/ALBUTEROL 0.5/2.5MG 3 ML NEBU. NEB SCH ×4 (05:44→18:48)
[2021-07-15 05:51] VITALS: BP 135/66
[2021-07-15 06:48] LABS: BASO # 0.1 x10^3/uL (0.0-0.2); BASO % 1 % (0-3); EOS # 0.3 x10^3/uL (0.0-0.7); EOS % 4 % (0-3); HEMATOCRIT 36.2 % (39.0-53.0); HEMOGLOBIN 12.6 g/dL (13.0-17.5); LYMPH # 2.5 x10^3/uL (1.0-4.8); LYMPH % 32 % (24-48); MEAN CORPUSCULAR HEMOGLOBIN 34 pg (25-35); MEAN CORPUSCULAR HGB CONC 35 g/dL (31-37); MEAN CORPUSCULAR VOLUME 99 fL (79-100); MONO # 0.7 x10^3/uL (0.0-1.1); MONO % 9 % (0-9); NEUT # 4.2 x10^3uL (1.8-7.7); NEUT % 54 % (31-73); PLATELET COUNT 210 x10^3/uL (140-400); RED BLOOD COUNT 3.66 x10^6/uL (4.30-5.70); RED CELL DISTRIBUTION WIDTH 13.5 % (11.5-14.5); WHITE BLOOD COUNT 7.8 x10^3/uL (4.0-11.0)
[2021-07-15 06:56] LABS: CALCIUM 8.7 mg/dL (8.5-10.1); CREATININE 2.1 mg/dL (0.7-1.3); GFR 31.9; POTASSIUM 3.2 mmol/L (3.5-5.1)
[2021-07-15] MEDS: PANTOPRAZOLE 40 MG TABLET. PO SCH (07:30)
[2021-07-15] MEDS: TAMSULOSIN 0.4 MG CAP.ER.24H. PO SCH (08:18)
[2021-07-15] MEDS: metOLazone 5 MG TABLET PO SCH (08:18)
[2021-07-15] MEDS: glipiZIDE 5 MG TABLET PO SCH ×2 (08:19→17:03)
[2021-07-15] MEDS: METOPROLOL TART IMMED RELEASE 25 MG TABLET. PO SCH ×2 (08:19→20:33)
[2021-07-15] MEDS: APIXABAN 5 MG TABLET. PO SCH ×2 (08:19→20:33)
[2021-07-15] MEDS: POTASSIUM CHLORIDE 20 MEQ TABLET.ER. PO SCH (08:19)
[2021-07-15] MEDS: FUROSEMIDE 20 MG TABLET PO SCH ×2 (08:19→20:32)
[2021-07-15] MEDS: INSULIN LISPRO 300 UNITS/3 ML VIAL. SQ SCH ×3 (08:25→17:07)
[2021-07-15] MEDS ORDERED: SODIUM CHLORIDE 0.65% NASAL SPRAY 45ML BOTTLE. NS PRN (08:30)
[2021-07-15] MEDS: oxyCODONE ER 20 MG TAB.ER.12H PO SCH ×2 (09:49→20:33)
[2021-07-15 11:20] VITALS: BP 126/57
[2021-07-15] MEDS: DOCUSATE SODIUM 100 MG CAPSULE PO SCH ×2 (14:18→20:33)
[2021-07-15] MEDS: BACLOFEN 10 MG TABLET PO SCH ×2 (14:18→20:32)
[2021-07-15 15:51] VITALS: BP 130/66
[2021-07-15 19:00] VITALS: BP 141/66
[2021-07-15] MEDS: LACTOBACILLUS RHAMNOSUS GG 1 CAPSULE. PO SCH (20:32)
[2021-07-15 23:54] VITALS: BP 140/63
[2021-07-15 23:56] VITALS: BP 140/63
[2021-07-16] MEDS: PIPERACILLIN/TAZOBACTAM 3.375 GM in IV NORMAL SALINE 50ML 50 ML IV SCH ×2 (00:01→06:00)
[2021-07-16] MEDS: IPRATRPIUM/ALBUTEROL 0.5/2.5MG 3 ML NEBU. NEB SCH (05:17)
[2021-07-16 06:56] LABS: CALCIUM 8.8 mg/dL (8.5-10.1); GFR 33.7; POTASSIUM 4.5 mmol/L (3.5-5.1)
[2021-07-16] MEDS: INSULIN LISPRO 300 UNITS/3 ML VIAL. SQ SCH (07:59)
[2021-07-16] MEDS: PANTOPRAZOLE 40 MG TABLET. PO SCH (08:00)
[2021-07-16] MEDS: POTASSIUM CHLORIDE 20 MEQ TABLET.ER. PO SCH (08:00)
[2021-07-16] MEDS: DOCUSATE SODIUM 100 MG CAPSULE PO SCH (08:00)
[2021-07-16] MEDS: TAMSULOSIN 0.4 MG CAP.ER.24H. PO SCH (08:00)
[2021-07-16] MEDS: LACTOBACILLUS RHAMNOSUS GG 1 CAPSULE. PO SCH (08:00)
[2021-07-16 08:01] VITALS: BP 140/63
[2021-07-16] MEDS: glipiZIDE 5 MG TABLET PO SCH (08:01)
[2021-07-16] MEDS: METOPROLOL TART IMMED RELEASE 25 MG TABLET. PO SCH (08:01)
[2021-07-16] MEDS: APIXABAN 5 MG TABLET. PO SCH (08:01)
[2021-07-16] MEDS: metOLazone 5 MG TABLET PO SCH (08:01)
[2021-07-16] MEDS: FUROSEMIDE 20 MG TABLET PO SCH (08:01)
[2021-07-16] MEDS: oxyCODONE ER 20 MG TAB.ER.12H PO SCH (08:02)
--- NOTE | 2021-07-16 09:20 | HP ---
DATE OF SERVICE: 07/15/2021 ADMIT DATE: 07/14/2021 HISTORY OF PRESENT ILLNESS: A 65-year-old male came in through the Emergency Room, long history of multiple medical problems, increased shortness of breath, worsening over the last couple of days, increasingly decreased mentation hard for him to take a deep breath, although apparently has been taking some other pain medication for severe neck and upper back pain that he has been having trying to get in with Dr. Howe noted Neurosurgeon for that. In any case, the patient was also found to have a pneumonic process, possible aspiration pneumonia and the patient was admitted to the hospital for further evaluation and treatment of his pneumonia and respiratory distress as well as other situations. PAST MEDICAL HISTORY: Hypercholesterolemia, DVT, sleep apnea, pancreatitis, diabetes, influenza and other vaccinations have been up to date. FAMILY HISTORY: Unremarkable. ALLERGIES: THE PATIENT HAS ALLERGY TO SULFUR, NIFEDIPINE AND LISINOPRIL. MEDICATIONS: The patient's home medications include DuoNeb treatments, Flomax 0.4, fenofibrate, Lipitor, metoprolol, hydrocodone, Prozac 10, potassium chloride, furosemide 20, metolazone, metformin, insulin, and glipizide. SOCIAL HISTORY: The patient denies smoking, alcohol or drug use. The patient is full code. REVIEW OF SYSTEMS: The patient has severe pain in the upper neck and back area as well as headache. The patient denies any nausea, vomiting. Does have increased shortness of breath or cough. He denies any fever, chills or whatever. Denies any problem with melena, hematochezia, hematemesis and neurologically stable. PHYSICAL EXAMINATION: GENERAL: Pleasant white male, moderate amount of distress. VITAL SIGNS: Blood pressure 125/66, respiratory rate 20, pulse 60, afebrile, room air 95. At first, he had to be put on 5 liters. HEENT: The patient's head was atraumatic, normocephalic. Eyes: PERRLA without jaundice. The mouth and throat were normal. NECK: Supple without JVD, carotid bruits, or thyromegaly. This overweight white male with severe pain in his upper neck and back to the point where he could not move his head at either direction without having severe pain. LUNGS: Diminished primarily in the bases. CARDIOVASCULAR: Regular sinus rhythm, S1, S2, without murmur, rub, thrill, or extra heart sounds. ABDOMEN: Soft, protuberant, nontender. EXTREMITIES: No clubbing, cyanosis. The patient has marked disfigurement to the left lower leg from previous injuries and previous DVTs. Pulses noted distally. NEUROLOGIC: The patient was alert and oriented x3. Chest x-ray shows bilateral lung infiltrative process. Some possible edema down into the gut consistent with possible mesenteric panniculitis. The patient otherwise continued to be monitored carefully, make further evaluation, started on IV antibiotic therapy, breathing treatments. Continue to monitor blood sugars and make further evaluation and try to assess his upper back and neck pain as well. KRISTIN/TJ DR: Donta TID: [id number]
[2021-07-16] MEDS ORDERED: BACL10TA PO (09:45)
[2021-07-16] MEDS ORDERED: DOCU-109 PO (09:45)
[2021-07-16] MEDS ORDERED: OXYC20TA35 PO (09:45)
[2021-07-16] MEDS ORDERED: SODI44SP NS (09:45)
[2021-07-16] MEDS ORDERED: PANT40TA6 PO (09:45)
[2021-07-16] MEDS ORDERED: APIX5TAB3 PO (09:45)
--- NOTE | 2021-07-16 11:09 | NUR ---
Discharge note Pt discharged at 1100 via ambulation accompanied by family member. pt given written and verbal instructions with verbal statement of understanding received.
[2021-07-16] MEDS ORDERED: metFORMIN 500 MG TABLET PO SCH (17:00)
--- NOTE | 2021-07-17 12:40 | DS ---
DATE OF DISCHARGE: 07/16/2021 HOSPITAL COURSE: A 65-year-old gentleman who came in through the Emergency Room with increased shortness of breath, general decrease in mentation. The patient also has been having severe pain in his back and neck area. He has an appointment to see Dr. Howe and will continue to be monitored carefully on that. It was also noted the patient might have a pneumonic process, possible aspiration. He was started on antibiotic therapy. Blood sugars were brought under good control. He kept on Eliquis. 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 The patient otherwise made good progress during the rest of his hospitalization. He was noted to have a BUN of 40 and creatinine of 2.3 on admission, came down to 38 and 2. Blood sugars were brought under reasonably good control for him as they needed to be monitored carefully. He did have an elevated lactic acid, elevated liver enzymes; AST 72, ALT of 75, creatinine, as noted, was 2. Potassium was slightly low at 3.3. COVID negative. Flu negative. D-dimer was elevated, but the patient was on Eliquis and has had a history of sort of passing out in a shower and that may have brought on slight anemia at 12.6 and 36. The patient otherwise continued to be monitored carefully, make further evaluation on him. He made excellent progress during the rest of his hospitalization. IMPRESSION: Acute respiratory failure, possible pneumonitis. Possible compensated congestive heart failure, chronic, systolic. Mesenteric panniculitis, morbid obesity, history of repetitive DVT, anemia, type 2 diabetes, elevated liver enzymes; probable liver steatosis, slight hypothyroidism with a TSH of 4.14, slightly elevated. Cardiac enzymes were normal. The patient will be placed on a heart healthy, low sodium, diabetic diet. We will have him to return to clinic for followup and we will monitor him. He is to see Dr. Howe for his severe back problems and make further evaluation on him as indicated. HUSAM/TAB DR: HUSAM/pedro TID: [id number]
== END 2021-07-16 11:08 | disposition home or self-care (01) | DRG 177 ==
LOC: ER 02:19 → 1 SOUTH 04:56
PROVIDERS: ADMIT Family Medicine; ATTEND Family Medicine
DX: J15.6 Pneumonia due to other Gram-negative bacteria (principal); J96.00 Acute respiratory failure, unspecified whether with hypoxia or hypercapnia; N17.0 Acute kidney failure with tubular necrosis; K65.4 Sclerosing mesenteritis; I50.22 Chronic systolic (congestive) heart failure; Z68.42 Body mass index [BMI] 45.0-49.9, adult; J15.9 Unspecified bacterial pneumonia; E11.41 Type 2 diabetes mellitus with diabetic mononeuropathy; E66.01 Morbid (severe) obesity due to excess calories; E78.00 Pure hypercholesterolemia, unspecified; E78.5 Hyperlipidemia, unspecified; J44.9 Chronic obstructive pulmonary disease, unspecified; Z20.822 Contact with and (suspected) exposure to COVID-19; Z79.4 Long term (current) use of insulin; Z86.16 Personal history of COVID-19; Z86.718 Personal history of other venous thrombosis and embolism; Z87.01 Personal history of pneumonia (recurrent); G47.33 Obstructive sleep apnea (adult) (pediatric); I11.0 Hypertensive heart disease with heart failure; Z88.2 Allergy status to sulfonamides; Z88.8 Allergy status to other drugs, medicaments and biological substances
CPT/HCPCS: 36415; 70450; 70496; 70498; 71275; 74177; 80048; 80053; 80329; 81001; 82947; 83605; 83690; 83735; 84443; 84484; 85025; 85379; 85610; 85730; 87426; 87804; 93005; 94640; 96361; 96365; 96372; 96375; J0696; J1815; J1885; J1956; J2270; J2310; J2543; J7120; Q9967; U0003; 97530; 99285-25; G0480

== ENCOUNTER → 2021-07-31 | Outpatient (CLI) | payer BC, MEDICARE ==
[2021-07-16 08:01] VITALS: BP 140/63
[~2021-07-31] MED LIST changes: +APIX5TAB3 PO; +BACL10TA PO; +DOCU-109 PO; +OXYC20TA35 PO; +PANT40TA6 PO; +SODI44SP NS
[2021-07-31 10:21] LABS: BASO # 0.1 x10^3/uL (0.0-0.2); BASO % 1 % (0-3); EOS # 0.3 x10^3/uL (0.0-0.7); EOS % 2 % (0-3); HEMOGLOBIN 14.5 g/dL (13.0-17.5); LYMPH # 2.6 x10^3/uL (1.0-4.8); LYMPH % 20 % (24-48); MEAN CORPUSCULAR HEMOGLOBIN 34 pg (25-35); MEAN CORPUSCULAR HGB CONC 35 g/dL (31-37); MEAN CORPUSCULAR VOLUME 99 fL (79-100); MONO # 1.2 x10^3/uL (0.0-1.1); MONO % 9 % (0-9); NEUT # 9.3 x10^3uL (1.8-7.7); NEUT % 69 % (31-73); PLATELET COUNT 241 x10^3/uL (140-400); RED BLOOD COUNT 4.23 x10^6/uL (4.30-5.70); RED CELL DISTRIBUTION WIDTH 13.8 % (11.5-14.5); WHITE BLOOD COUNT 13.5 x10^3/uL (4.0-11.0)
[2021-07-31 10:25] LABS: CALCIUM 9.3 mg/dL (8.5-10.1); CREATININE 2.1 mg/dL (0.7-1.3); GFR 31.9; PHOSPHORUS 3.4 mg/dL (2.6-4.7); POTASSIUM 3.7 mmol/L (3.5-5.1)
[2021-08-01 01:16] LABS: HEMOGLOBIN A1C 7.7 % (4.8-5.6)
== END ==
LOC: LAB 09:15
PROVIDERS: ATTEND Internal Medicine Cardiovascular Disease
DX: E11.65 Type 2 diabetes mellitus with hyperglycemia (principal); N18.32 Chronic kidney disease, stage 3b; R06.02 Shortness of breath; R07.9 Chest pain, unspecified; M23.202 Derangement of unspecified lateral meniscus due to old tear or injury, unspecified knee; M23.611 Other spontaneous disruption of anterior cruciate ligament of right knee
CPT/HCPCS: 36415; 80048; 80061; 80069; 83036; 85025; 85610; 85730

== ENCOUNTER → 2021-09-06 | Outpatient (CLI) | payer BC, MEDICARE ==
[2021-09-06 12:17] LABS: BASO # 0.1 x10^3/uL (0.0-0.2); BASO % 1 % (0-3); EOS # 0.3 x10^3/uL (0.0-0.7); EOS % 2 % (0-3); HEMATOCRIT 39.4 % (39.0-53.0); HEMOGLOBIN 13.6 g/dL (13.0-17.5); LYMPH # 2.6 x10^3/uL (1.0-4.8); LYMPH % 23 % (24-48); MEAN CORPUSCULAR HEMOGLOBIN 34 pg (25-35); MEAN CORPUSCULAR HGB CONC 35 g/dL (31-37); MEAN CORPUSCULAR VOLUME 99 fL (79-100); MONO # 1.1 x10^3/uL (0.0-1.1); MONO % 10 % (0-9); NEUT # 7.3 x10^3uL (1.8-7.7); NEUT % 65 % (31-73); PLATELET COUNT 229 x10^3/uL (140-400); RED BLOOD COUNT 3.98 x10^6/uL (4.30-5.70); RED CELL DISTRIBUTION WIDTH 13.5 % (11.5-14.5); WHITE BLOOD COUNT 11.3 x10^3/uL (4.0-11.0)
[2021-09-06 12:33] LABS: CALCIUM 9.3 mg/dL (8.5-10.1); CREATININE 2.2 mg/dL (0.7-1.3); GFR 30.2; POTASSIUM 3.7 mmol/L (3.5-5.1)
== END ==
LOC: LAB 11:49
PROVIDERS: ATTEND Family Medicine
DX: D72.829 Elevated white blood cell count, unspecified (principal); E11.8 Type 2 diabetes mellitus with unspecified complications; E78.1 Pure hyperglyceridemia
CPT/HCPCS: 36415; 80048; 85025

== ENCOUNTER 2021-09-26 13:13 | Emergency (ER) | payer BC, MEDICARE ==
[~2021-09-26] VITALS: Ht 170.2 cm; Wt 127.0 kg
[2021-09-26] MEDS ORDERED: NALOXONE 0.4 MG/ML VIAL. IV ONE ×2 (13:30→14:15)
--- NOTE | 2021-09-26 13:34 | PHYS DOC ---
Past History Past Medical History: Diabetes, DVT, High Cholesterol, Hypertension, Other Additional Past Medical Histor: covid pneumonia 09/30;Cellulitis lt low leg; sepsis;sleep apnea Past Surgical History: Cholecystectomy, Other Additional Past Surgical Histo: skin graft to lt lower leg; abdominal and umbilical hernia rep Alcohol Use: Occasionally Drug Use: None Adult General Chief Complaint Chief Complaint: Neck Pain HPI HPI Patient is a 65-year-old male presenting via EMS for multiple complaints. Patient a poor historian on presentation and majority of history obtained from EMS personnel. Patient reportedly had cervical spine procedure performed 1 week ago and has been at outpatient residential facility for rehabilitation purposes ever since. Patient reportedly discharged back home yesterday. Reports he was okay eating well with unremarkable urine bowel output until this morning when patient reportedly was more lethargic than usual with complaints of nausea and abdominal pain. This, in addition to "not feeling well" prompted him to call EMS for transport to our facility. On arrival, patient hemodynamically stable. On arrival, patient complains to " not feel well" but cannot characterize this beyond same he is nauseous. States he is short of breath but later states it is at baseline for his history of COPD for which she does not use any inhalers and no longer smokes. Also reports he has ongoing nausea wi thout any episodes of emesis and epigastric pain. States he is otherwise been at baseline health besides recent surgery with no medication changes in outpatient setting or recent falls/trauma. Review of Systems Review of Systems Fourteen body systems of review of systems have been reviewed. See HPI for pertinent positives and negative responses, other arcos all other systems are negative, non-pertinent or non-contributory Allergies Allergies Allergies Coded Allergies Type Severity Reaction Last Updated Verified lisinopril Allergy Severe breathing difficulty, closed throat 03/26/15 Yes Sulfa (Sulfonamide Antibiotics) Allergy Intermediate Hives 02/15/16 No amlodipine Allergy Unknown 09/24/20 Yes Physical Exam Physical Exam Constitutional: Obese, appears under the influence of opiate medication with pinpoint pupils and at times noncoherent thought process, non-toxic appearance. HENT: Normocephalic, atraumatic, bilateral external ears normal, oropharynx moist, no oral exudates, nose normal. Eyes: PERRLA, EOMI, conjunctiva normal, no discharge. Neck: Normal range of motion, no tenderness, supple, no stridor. Cardiovascular: Heart rate regular, sinus rhythm, no murmurs rubs or gallops Lungs & Thorax: Bilateral breath sounds clear to auscultation Abdomen: Bowel sounds normal, soft, no tenderness, no masses, no pulsatile masses. Nonsurgical abdomen, no peritoneal signs Skin: Warm, dry, no erythema, no rash. Well-appearing midline scar to cervical spine consistent with recent cervical spine procedure that is well-healed without any infectious findings such as erythema, pus or abscess formation etc. Back: No tenderness, no CVA tenderness. Extremities: No tenderness, no cyanosis, no clubbing, ROM intact, no edema. Neurologic: Alert and oriented X 3, grossly normal motor & sensory function, no focal deficits noted. Psychologic: Anxious affect and mood Current Patient Data Vital Signs Vital Signs Date Time Temp Pulse Resp B/P (MAP) Pulse Ox O2 Delivery O2 Flow Rate FiO2 09/26/21 13:15 97.8 63 18 130/64 (86) 100 Room Air Vital Signs Date Time Temp Pulse Resp B/P (MAP) Pulse Ox O2 Delivery O2 Flow Rate FiO2 09/26/21 13:15 97.8 63 18 130/64 (86) 100 Room Air Lab Results Laboratory Tests Test 09/26/21 13:35 09/26/21 14:31 White Blood Count 12.0 x10^3/uL Red Blood Count 3.68 x10^6/uL Hemoglobin 12.4 g/dL Hematocrit 35.4 % Mean Corpuscular Volume 96 fL Mean Corpuscular Hemoglobin 34 pg Mean Corpuscular Hemoglobin Concent 35 g/dL Red Cell Distribution Width 13.3 % Platelet Count 318 x10^3/uL Neutrophils (%) (Auto) 63 % Lymphocytes (%) (Auto) 26 % Monocytes (%) (Auto) 8 % Eosinophils (%) (Auto) 3 % Basophils (%) (Auto) 0 % Neutrophils # (Auto) 7.5 x10^3uL Lymphocytes # (Auto) 3.2 x10^3/uL Monocytes # (Auto) 0.9 x10^3/uL Eosinophils # (Auto) 0.4 x10^3/uL Basophils # (Auto) 0.0 x10^3/uL Sodium Level 134 mmol/L Potassium Level 3.5 mmol/L Chloride Level 96 mmol/L Carbon Dioxide Level 27 mmol/L Anion Gap 11 Blood Urea Nitrogen 48 mg/dL Creatinine 2.1 mg/dL Estimated GFR (Cockcroft-Gault) 31.9 Glucose Level 189 mg/dL Calcium Level 9.4 mg/dL Troponin I High Sensitivity 14 ng/L Lipase 747 U/L Glucose (Fingerstick) 161 mg/dL Current Medications Medications (Trade) Dose Ordered Sig/Betsy Route PRN Reason Start Time Stop Time Status Last Admin Dose Admin Naloxone HCl (Narcan) 0.1 mg 1X ONCE IV 09/26/21 13:30 09/26/21 13:38 DC 09/26/21 13:48 Ondansetron HCl (Zofran) 4 mg 1X ONCE IVP 09/26/21 14:15 09/26/21 14:17 DC 09/26/21 14:33 Naloxone HCl (Narcan) 0.1 mg 1X ONCE IV 09/26/21 14:15 09/26/21 14:17 DC 09/26/21 14:34 EKG EKG EKG ordered and interpreted by myself at 1345 hrs. is sinus rhythm at 68 bpm, unremarkable intervals, no axis deviation, no acute ischemic findings, no STEMI Radiology/Procedures Radiology/Procedures EXAMINATION: XR CHEST 1V CLINICAL HISTORY: Shortness of breath. EXAM DATE/TIME: 09/26/2021 1:30 PM COMPARISON: 10/01/2020 FINDINGS: Lines, Tubes, and Devices: None. Cardiomediastinal Silhouette: Normal heart size. Lungs and Pleura: Pulmonary hypoexpansion with evidence of focal airspace consolidation or pleural effusion. Mild bibasilar opacities likely related to subsegmental atelectasis and/or scarring. Pulmonary vasculature unremarkable. Bones and Soft Tissues: Degenerative changes in the thoracic spine. IMPRESSION: No evidence of acute cardiopulmonary abnormality. Electronically signed by: Yonatan Herring DO (09/26/2021 1:56 PM) [id number] //////////////////////////////////////// CT Head without contrast 09/26/2021 2:15 PM Indication: Altered mental status: Comparison: CT head July 14, 2021 Findings: No intracranial hemorrhage is seen. No evidence of acute territorial infarct is seen. Note that CT is limited in sensitivity for acute ischemia. Age-related atrophic changes are noted. There is patchy periventricular and deep white matter hypoattenuation which is nonspecific, but most commonly relates to chronic small vessel disease. No abnormal extra axial fluid collection is identified. No mass effect or midline shift is seen. No acute osseous abnormalities are seen. Impression: 1. No acute intracranial process identified 2. Atrophic changes and evidence of chronic small vessel disease as described. The appearance is similar to comparison study ////////////////////////////////// Examination: CT of the abdomen pelvis without contrast HISTORY: History of epigastric pain COMPARISON: 03/26/2015 TECHNIQUE: Axial CT images of the abdomen pelvis were performed without contrast. Coronal and sagittal reformats are performed Exposure: One or more of the following individualized dose reduction techniques were utilized for this examination: 1. Automated exposure control 2. Adjus tment of the mA and/or kV according to patient size 3. Use of iterative reconstruction technique FINDINGS: Mild bibasilar lung atelectasis. No evidence of free air identified in the abdomen The evaluation of the solid organs is limited due to lack of IV contrast. The evaluation of bowel is limited due to lack of oral contrast. The visualized noncontrasted spleen, adrenals grossly appears unremarkable. There are two 2.1 cm hypodensities identified in the right lobe of the liver could be cysts or cystic lesions similar to prior exam.. Cholecystectomy changes. The stomach is mildly distended. The visualized pancreas grossly appears unremarkable. Mild fat stranding of the mesenteric root small mesenteric lymph nodes measuring 1 cm. The small bowel is nondilated. Feces and gas noted in colon. Urinary bladder is mildly distended. Few sigmoid colon diverticulosis. Mild thickened appearance of the urinary bladder wall. Cystic structure identified in the right kidney measuring 1.8 cm likely cyst. Moderate degenerative changes lumbar spine IMPRESSION: 1. Mild fat stranding of the mesenteric root with small mesenteric lymph nodes measuring 1 cm could be, nonspecific, idiopathic or mild mesenteric panniculitis. 2. Mild thickened appearance of the urinary bladder wall could be due to nondistention or cystitis. Correlate with lab values. 3. Few sigmoid colon diverticulosis. 4. 2.1 cm hypodensities identified in the right lobe of the liver could be cysts or cystic lesions similar to prior exam. Electronically signed by: Jimmy Henderson MD (09/26/2021 2:48 PM) [id number] Heart Score C/O Chest Pain: No HEART Score for Chest Pain: HEART Score for Chest Pain Response (Comments) Value History Slighlty/Non-Suspicious 0 ECG Normal 0 Age >45 - < 65 1 Risk Factors >3 Risk Factors or Hx CAD 2 Troponin < Normal Limit 0 Total 3 Risk Factors: Risk Factors: DM, Current or recent (<one month) smoker, HTN, HLP, family history of CAD, obesity. Risk Scores: Risk Factors: DM, Current or recent (<one month) smoker, HTN, HLP, family history of CAD, obesity. Course & Med Decision Making Course & Med Decision Making ABCs unremarkable HPI limited due to patient's mentation likely due to opiate overuse given lethargic state in fact that he was falling asleep throughout entirety of history gathering, physical examination unremarkable. Subsequent diagnostic ER obtained and unremarkable 0.2 mg Narcan IV administered with improvement in patient's mentation. Became angry and agitated screaming in emergency department that he was thirsty. Verbally abusive to staff. Patient regained composure and later apologized to staff I disclosed entirety of ER work-up to patient and at bedside that was grossly nonconcerning. Disclosed that history of present illness was likely due to accidental opiate overuse due to recent increase in opiate use from neck surgery given complete reversal of symptoms after Narcan. Elevated lipase but does not meet criteria for acute pancreatitis. Concern for cystitis based on CT imaging but urinalysis unremarkable, joint decision to defer antibiotics and wait for culture. Also disclosed liver cysts and nonspecific mesenteric irritation Little indication for hospitalization and/or further diagnostic work-up in ER setting for which patient and who came to bedside later during visit agreed. Patient at baseline mentation per and voicing that he wants to be discharged Joint decision among all to discharge back home with continued supportive care practices and conservative opiate use recommended Cadence Disclaimer Dragon Disclaimer This electronic medical record was generated, in whole or in part, using a voice recognition dictation system. Departure Departure: Impression: Primary Impression: Adverse drug effect Additional Impression: Nausea Disposition: 01 HOME / SELF CARE / HOMELESS Condition: IMPROVED Referrals: GRIS ARAGON MD (PCP) Additional Instructions: You were seen for multiple symptoms. You initially presented with altered mental status likely due to increased frequency/dosage of opiate medications. This improved with reversal agent administered in ER. He subsequently had nausea and generalized abdominal pain, this improved with IV antiemetic medication. I disclosed to entirety of ER work-up that was nonconcerning in nature with little indication for further diagnostic work-up and/or need for hospitalization. You should contact your primary care physician immediately after ER departure and schedule follow-up within upcoming 48 hours for repeat evaluation. You should return to the ED if you develop abdominal pain, fever > 100.3, black/bloody stools, black/bloody vomiting, cannot keep water down, or any other new or concerning symptoms. Problem Qualifiers AMADA THOMAS DO Sep 26, 2021 13:34
--- NOTE | 2021-09-26 13:43 | EKG ---
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
[2021-09-26 13:50] LABS: BASO % 0 % (0-3); EOS # 0.4 x10^3/uL (0.0-0.7); EOS % 3 % (0-3); HEMATOCRIT 35.4 % (39.0-53.0); HEMOGLOBIN 12.4 g/dL (13.0-17.5); LYMPH # 3.2 x10^3/uL (1.0-4.8); LYMPH % 26 % (24-48); MEAN CORPUSCULAR HEMOGLOBIN 34 pg (25-35); MEAN CORPUSCULAR HGB CONC 35 g/dL (31-37); MEAN CORPUSCULAR VOLUME 96 fL (79-100); MONO # 0.9 x10^3/uL (0.0-1.1); MONO % 8 % (0-9); NEUT # 7.5 x10^3uL (1.8-7.7); NEUT % 63 % (31-73); PLATELET COUNT 318 x10^3/uL (140-400); RED BLOOD COUNT 3.68 x10^6/uL (4.30-5.70); RED CELL DISTRIBUTION WIDTH 13.3 % (11.5-14.5)
--- NOTE | 2021-09-26 13:58 | RAD ---
EXAMINATION: XR CHEST 1V CLINICAL HISTORY: Shortness of breath. EXAM DATE/TIME: 09/26/2021 1:30 PM COMPARISON: 10/01/2020 FINDINGS: Lines, Tubes, and Devices: None. Cardiomediastinal Silhouette: Normal heart size. Lungs and Pleura: Pulmonary hypoexpansion with evidence of focal airspace consolidation or pleural ef fusion. Mild bibasilar opacities likely related to subsegmental atelectasis and/or scarring. Pulmonar y vasculature unremarkable. Bones and Soft Tissues: Degenerative changes in the thoracic spine. IMPRESSION: No evidence of acute cardiopulmonary abnormality. Electronically signed by: Yonatan Herring DO (09/26/2021 1:56 PM) [id number]
[2021-09-26 13:59] LABS: CALCIUM 9.4 mg/dL (8.5-10.1); CREATININE 2.1 mg/dL (0.7-1.3); GFR 31.9; POTASSIUM 3.5 mmol/L (3.5-5.1)
[2021-09-26] MEDS ORDERED: ONDANSETRON PF 4 MG/2 ML VIAL. IVP ONE (14:15)
--- NOTE | 2021-09-26 14:35 | RAD ---
CT Head without contrast 09/26/2021 2:15 PM Indication: Altered mental status: Comparison: CT head July 14, 2021 Findings: No intracranial hemorrhage is seen. No evidence of acute territorial infarct is seen. Note that CT is limited in sensitivity for acute ischemia. Age-related atrophic changes are noted. Ther e is patchy periventricular and deep white matter hypoattenuation which is nonspecific, but most comm only relates to chronic small vessel disease. No abnormal extra axial fluid collection is identified . No mass effect or midline shift is seen. No acute osseous abnormalities are seen. Impression: 1. No acute intracranial process identified 2. Atrophic changes and evidence of chronic small vessel disease as described. The appearance is jyoti lar to comparison study CT DOSING PQRS STATEMENT: One or more of the following individualized dose reduction techniques were utilized for this examinat ion: 1. Automated exposure control 2. Adjustment of the mA and/or kV according to patient size 3. Use of iterative reconstruction technique CT DOSING PQRS STATEMENT: One or more of the following individualized dose reduction techniques were utilized for this examinat ion: 1. Automated exposure control 2. Adjustment of the mA and/or kV according to patient size 3. Use of iterative reconstruction technique Electronically signed by: Rishi Alicea MD (09/26/2021 2:33 PM) [id number]
--- NOTE | 2021-09-26 14:51 | RAD ---
Examination: CT of the abdomen pelvis without contrast HISTORY: History of epigastric pain COMPARISON: 03/26/2015 TECHNIQUE: Axial CT images of the abdomen pelvis were performed without contrast. Coronal and sagitta l reformats are performed Exposure: One or more of the following individualized dose reduction techniques were utilized for thi s examination: 1. Automated exposure control 2. Adjustment of the mA and/or kV according to patient size 3. Use of iterative reconstruction technique FINDINGS: Mild bibasilar lung atelectasis. No evidence of free air identified in the abdomen The evaluation of the solid organs is limited due to lack of IV contrast. The evaluation of bowel is limited due to lack of oral contrast. The visualized noncontrasted spleen, adrenals grossly appears u nremarkable. There are two 2.1 cm hypodensities identified in the right lobe of the liver could be cy sts or cystic lesions similar to prior exam.. Cholecystectomy changes. The stomach is mildly distende d. The visualized pancreas grossly appears unremarkable. Mild fat stranding of the mesenteric root sm all mesenteric lymph nodes measuring 1 cm. The small bowel is nondilated. Feces and gas noted in colo n. Urinary bladder is mildly distended. Few sigmoid colon diverticulosis. Mild thickened appearance o f the urinary bladder wall. Cystic structure identified in the right kidney measuring 1.8 cm likely cyst. Moderate degenerative c hanges lumbar spine IMPRESSION: 1. Mild fat stranding of the mesenteric root with small mesenteric lymph nodes measuring 1 cm could be, nonspecific, idiopathic or mild mesenteric panniculitis. 2. Mild thickened appearance of the urinary bladder wall could be due to nondistention or cystitis. Correlate with lab values. 3. Few sigmoid colon diverticulosis. 4. 2.1 cm hypodensities identified in the right lobe of the liver could be cysts or cystic lesions s imilar to prior exam. Electronically signed by: Jimmy Henderson MD (09/26/2021 2:48 PM) [id number]
[2021-09-26 15:26] LABS: BACTERIA,URINE 0 /HPF (0-FEW); BILIRUBIN,URINE NEG (NEG); CLARITY,URINE CLEAR; COLOR,URINE YELLOW; GLUCOSE,URINE NEG (NEG); NITRITE,URINE NEG (NEG); RBC,URINE OCC /HPF (0-2); SQUAMOUS EPITHELIAL CELL,UR FEW /LPF; UROBILINOGEN,URINE 0.2 mg/dL (0.2 mg/dL); WBC,URINE 0 /HPF (0-4)
[2021-09-26 15:35] VITALS: BP 134/77
== END 2021-09-26 15:40 | disposition home or self-care (01) ==
LOC: ER 13:13
DX: R11.0 Nausea (principal); T50.995A Adverse effect of other drugs, medicaments and biological substances, initial encounter; R53.83 Other fatigue; E11.9 Type 2 diabetes mellitus without complications; E78.00 Pure hypercholesterolemia, unspecified; I10 Essential (primary) hypertension; Z86.718 Personal history of other venous thrombosis and embolism; Z88.8 Allergy status to other drugs, medicaments and biological substances; Z88.2 Allergy status to sulfonamides; Y92.89 Other specified places as the place of occurrence of the external cause
CPT/HCPCS: 36415; 70450; 71045; 74176; 80048; 81001; 82947; 83690; 84484; 85025; 93005; 96374; 96375; 96376; 99285; J2310; J2405